=== PATIENT | female | born 1965 | race Two or more races ===

== ENCOUNTER 2021-12-03 09:58 | Outpatient (REF) | payer OTHER, SELFPAY ==
[2021-12-03 11:42] LABS: Erythrocyte Sedimentation Rate 16 MM/HR (0-20)
[2021-12-03 12:15] LABS: Syphilis Screen Nonreactive (Nonreactive)
[2021-12-03 12:18] LABS: Anion Gap 10 (12-20); Blood Urea Nitrogen 15 mg/dL (9-16); Calcium 9.5 mg/dL (8.4-10.2); Carbon Dioxide 29 mmol/L (22-29); Chloride 107 mmol/L (96-108); Estimated Glomerular Filt Rate > 60; Glucose Fasting 98 mg/dL (60-99); Potassium 4.9 mmol/L (3.3-5.1); Sodium 141 mmol/L (135-145)
[2021-12-05 05:06] LABS: Lyme Abs Screen <0.90 index
[2021-12-07 08:31] LABS: IgA 116 mg/dL (47-310); IgG 1246 mg/dL (600-1640); IgM 108 mg/dL (50-300)
== END 2021-12-03 09:59 | disposition home or self-care (01) ==
LOC: HO.LAB 09:58
PROVIDERS: Visit Provider Psychiatry & Neurology Neurology
DX: M79.7 Fibromyalgia (principal)
CPT/HCPCS: 36415; 80048; 82784; 85652; 86334; 86617; 86618; 86780

== ENCOUNTER 2022-05-26 10:54 | Outpatient (REF) | payer OTHER, SELFPAY ==
[2022-05-26 11:31] LABS: Blood Urea Nitrogen 14 mg/dL (9-16); Estimated Glomerular Filt Rate > 60
== END 2022-05-26 10:55 | disposition home or self-care (01) ==
LOC: HO.LAB 10:54
PROVIDERS: Visit Provider Psychiatry & Neurology Neurology
DX: I60.9 Nontraumatic subarachnoid hemorrhage, unspecified (principal)
CPT/HCPCS: 36415; 82565; 84520

== ENCOUNTER 2022-05-31 09:06 | Outpatient (REF) | payer OTHER, SELFPAY ==
--- NOTE | ~2022-05-31 | CT_ITS ---
EXAMINATION: CT ANGIOGRAM BRAIN, HEAD CLINICAL INFORMATION: 56-year-old with history of subarachnoid bleed. COMPARISON: None TECHNIQUE: Test bolus sequences followed by intravenous administration 100 mL of Omnipaque 350 intravenous contrast. Helical imaging was performed in the axial plane from the skull base to the vertex. Delayed postcontrast imaging of the head was also performed. The data was processed at the marketing technologist workstation for generation of MIP sequences. Three-dimensional volume rendered reformatted images were also generated at an offline 3-D workstation. The degree of stenosis determined by NASCET criteria. This CT examination was performed using dose optimization techniques as appropriate, variously including the following: *Automated exposure control *Adjustment of mA and/or kV according to patient size (this includes techniques or standardized protocols for targeted exams where dose is matched to indication/reason for exam; i.e. extremities or head) *Use of iterative reconstruction technique DLP: 2341 mGy-cm FINDINGS: Brain parenchymal images: The brain is normal in morphology and attenuation. There is no evidence for intracranial hemorrhage, extra-axial fluid collection, space-occupying process or mass effect. Normal brain parenchymal attenuation is noted with normal vázquez-white matter differentiation. No pathologic intracranial enhancement on delayed images. Ventricular system and subarachnoid spaces are within normal limits without hydrocephalus. Bony structures appear intact. The visualized airspaces are unopacified. Angiographic findings: The visualized extracranial internal carotid arteries are normal in caliber, smoothly contoured and patent. The intracranial internal carotid arteries are patent and normal in caliber with scattered mural calcifications involving both carotid siphons without significant focal stenosis. The A1 and A2 segments are patent and normal in caliber, with a normal appearance to the anterior communicating artery. The M1 segments are bilaterally symmetric and are patent with normal caliber, with a normal appearance to the MCA bifurcations bilaterally. The posterior communicating arteries are not visualized. The visualized extracranial vertebral arteries are patent and normal in caliber with the left being dominant. The intradural vertebral arteries are patent with the left being dominant with a small focus of calcification in the proximal left intradural vertebral artery wall. A low right anterior inferior cerebellar artery is visualized in addition to a left posterior inferior cerebellar artery which appear normal. The basilar artery is patent and normal in caliber with a normal appearance to the superior cerebellar and posterior cerebral arteries. No intracranial aneurysms or high flow vascular malformations are identified. There is normal opacification of the major dural venous sinuses within the limitations of the exam. CT/CT angio head IMPRESSION: 1. No major branch occlusion or significant focal intracranial arterial stenosis. No definite evidence for intracranial aneurysm or vascular malformation. 2. Unremarkable CT of the brain without and with contrast.
[2022-05-31] MEDS: iohexoL 350 MG/ML 100 ML INFUS..BTL IV (10:19)
== END 2022-05-31 09:07 | disposition home or self-care (01) ==
LOC: HO.CT 09:06
PROVIDERS: Visit Provider Psychiatry & Neurology Neurology
DX: I60.9 Nontraumatic subarachnoid hemorrhage, unspecified (principal)
CPT/HCPCS: 70496; Q9967

== ENCOUNTER 2025-04-10 14:44 | Outpatient (AMB) | payer OTHER, SELFPAY ==
--- NOTE | 2025-04-10 14:49 | MHC.OFFVIS ---
Intake Visit Reasons: 2 mnts Allergies No Known Allergies Allergy (Verified 04/04/25 08:28) Medication List - Last Reconciled 04/10/25 by Shayla Ritter MD cyclobenzaprine 10 mg PO TID PRN escitalopram oxalate 5 mg PO DAILY gabapentin 300 mg PO TID HPI Comments Details: 59 yo woman with migraine, anxiety, and probably psychosomatic disorder with symptoms of numbness in different areas of body. But, she also had an episode of unexplained SAH in 2021 with negative CTA brain, when she presented to [facility] ER with sudden onset of right sided neck area worst headache or her life. She was c/o right sided headache, every day, from shoulder to neck to the eye. It usually stayed for an hour or two. It is continuos 6/10 pain or more. Propranalol helped with HTN but not with headaches. She was not taking escitalopram. [facility] Medical History (Updated 04/10/25 @ 14:57 by Shayla Ritter MD) Carpal tunnel syndrome Somatization disorder RLS (restless legs syndrome) Anxiety Migraine without aura Review of Systems Const Details: Constitutional:?No fever, chills, fatigue, weight loss, or night sweats. HEENT:?No headache, vision changes, hearing loss, nasal congestion, sore throat. Neurological:?No dizziness, syncope, seizures, numbness, tingling, weakness, tremors, memory loss. Psychiatric:?No anxiety, depression, mood swings, sleep disturbance, or hallucinations. Endocrine:?No heat/cold intolerance, polydipsia, polyuria, or hair/skin changes. Hematologic/Lymphatic:?No easy bruising, bleeding, or lymphadenopathy. Integumentary (Skin):?No rash, lesions, itching, or color changes. ? Physical Exam Neuro Other: Mental Status: Alert and oriented to person, place, and time. Normal attention. Normal spontaneous speech, fluency, and comprehension. No obvious issues with mood and memory. Affect is appropriate. Cranial Nerves: CN II: Visual catherine full to confrontation, visual acuity intact. CN III, IV, : Pupils equal, round, reactive to light and accommodation. Extraocular movements are normal. CN V: Facial sensation is normal. CN VII: Facial movements symmetrical. CN VIII: Hearing intact to bedside conversation is normal. CN IX, X: Palate elevates symmetrically. CN XI: Shoulder shrug and head turn symmetrical. CN XII: Tongue midline without atrophy or fasciculations. Extrapyramidal: Full facial expressions and blinking. No rigidity. Movements are appropriate with no tremor or abnormality. Speech: Normal; no dysarthria or tremor. Assessment & Plan Assessment & Plan (1) Migraine with aura: Comment: Meds tried: gabapentin, cyclobenzaprine, propranolol, topiramate, amitriptyline Labs at [facility] in 2021: CBC ok, CMP ok, LFTs ok, CTA brain and neck at [facility] in Aug 2022: WNL CT brain at [facility] in Aug 2022: WNL CTA brain at [facility] in May 2022: OK CTA brain at [facility] in Apr 2022: OK CTA neck at [facility] in Apr 2022: OK MRI brain WWO at [facility] in Apr 2022: [place] CT brain WO at [facility] in March 2022: significant SAH CT brain WO at [facility] in February 2021: OK MRI brain WO at [facility] in February 2021: [place] NCV/EMG UEs at [facility] in Nov 2021: Mild to moderate right and mild left median neuropathy across the Carpal tunnel. MRI brain WO at [facility] in May 2020: WNL, there is imaging artifact from dental fillings MRI C spine at [facility] in Sep 2022: diff DJD, mild to mod spondylosis. Code(s): G43.109 - Migraine with aura, not intractable, without status migrainosus Category: Medical Qualifiers: Status migrainosus presence: without status migrainosus Intractability: intractable Qualified Code(s): G43.119 - Migraine with aura, intractable, without status migrainosus (2) Migraine equivalent syndrome: Code(s): G43.109 - Migraine with aura, not intractable, without status migrainosus Category: Medical (3) Stress: Code(s): F43.9 - Reaction to severe stress, unspecified Category: Medical (4) Migraine without aura: Code(s): G43.009 - Migraine without aura, not intractable, without status migrainosus Category: Medical Qualifiers: Status migrainosus presence: without status migrainosus Intractability: intractable Qualified Code(s): G43.019 - Migraine without aura, intractable, without status migrainosus Plan Impression: a: Migraine b: Anxiety/stress Rec: a: Propranalol 20mg a day in am b: Start depakote 250mg one at night Medications: New propranolol 20 mg PO ONCE 90 tabs 0RF divalproex 250 mg PO ONCE 90 tabs 0RF Coding Level of Care Code Est Pt Level 4 (61350) Diagnoses Intractable migraine with aura without status migrainosus G43.119 Status migrainosus presence: without status migrainosus Intractability: intractable Migraine equivalent syndrome G43.109 Stress F43.9 Intractable migraine without aura and without status migrainosus G43.019 Status migrainosus presence: without status migrainosus Intractability: intractable
--- OUTSIDE RECORDS SUMMARY | 2025-04-10 14:49 | XMS_ITS | Clinical Summary ---
Author Organization [facility] Address [address] [place] [address] Care Team Providers Care Surgical Services Manager Name Role Phone Garrick Johns GOVERNMENT CLERK Primary Care Provider [phone] Source Comments PLEASE NOTE, if this patient is a minor, it may be UNLAWFUL to discuss sensitive information that is contained in these records (such as FAMILY PLANNING, MENTAL HEALTH or SUBSTANCE ABUSE) with the minor patient's parent or other person without the patient's specific authorization.[facility] Allergies No known active allergies Medications hydrocortisone (ANUSOL-HC) 2.5 % rectal creamIndications :Anal pruritus Place rectally 2 (two) times daily. 30 g 1 4 Active docusate sodium (COLACE) 100 mg capsuleIndicatio ns:Generalized abdominal pain Take 1 Cap by mouth 2 (two) times daily. 60 Cap 1 5 Active surgical lubricant (K-Y LUBRICATING) gelIndications:P elvic pain in female Use lubricating jelly Prior to intercourse. 1 Tube 1 6 Active diphenhydrAMINE (BENADRYL) 25 mg tabletIndication s:Vaginal itching Take 1 Tab by mouth every 8 (eight) hours as needed for itching. 30 Tab 1 6 Active naproxen (NAPROSYN) 500 mg tabletIndication s:Chronic midline low back pain with sciatica, sciatica laterality unspecified Take 1 Tab by mouth 2 (two) times daily with a meal. 30 Tab 0 6 Active cyclobenzaprine (FLEXERIL) 10 mg tabletIndication s:muscle spasm Use at bed time for muscle spasm Indications: Muscle Spasm 30 Tab 1 6 Active salicylic acid 17 % gelIndications:V iral warts, unspecified type Apply topically once daily. 14 g 0 6 Active bacitracin 500 unit/gram ointmentIndicati ons:Superficial bacterial skin infection Apply topically 2 (two) times daily. 15 g 1 6 Active chlorhexidine (HIBICLENS) 4 % external liquidIndication s:Superficial bacterial skin infection Apply topically once daily as needed (chronic skin infectons). 946 mL 1 6 Active omeprazole (PRILOSEC) [address] capsule Take 1 Cap by mouth every morning before breakfast. Do not crush or chew. 30 Cap 2 6 Active ergocalciferol, vitamin D2, (VITAMIN D) 50,000 unit capsule Take 1 Cap by mouth once a week 4 Cap 2 7 Active Active Problems Problem Noted Date Diagnosed Date Chronic midline low back pain with sciatica 02/09 Acute folliculitis 02/23/2016 Breast pain in female 01/26/2016 Overview (02/21/2016): Multiple circumscribed round masses in both breast, birads- 2.02/15/16. Vaginal itching 10/01/2015 Tooth pain 10/01/2015 Pelvic pain in female 09/02/2015 Overview (10/04/2015): 09/28/15- 2.3 cm uterine lesion likely fibroid of uterus. F/u in 6 months for pelvic ultrasound. U/s abdomen- normal. Generalized abdominal pain 09/01/2015 Acute gastritis without hemorrhage 09/01/2015 Chronic paronychia of finger of left hand 2014 Chronic vaginitis 09/01/2015 Bruise 12/02/2014 Otitis externa, chronic 12/01/2014 Anemia 10/22/2014 Abdominal pain of multiple sites 10/21/2014 Low back pain radiating to both legs 08/20/2014 Chest wall pain, chronic 08/20/2014 Headache 08/20/2014 Constipation 08/20/2014 Contusion, chest wall 08/03/2014 Overview (08/03/2014): 07/10/14- [facility]. Shoulder pain, right 05/15/2014 Back pain 05/15/2014 Neutropenia, unspecified ([facility] V24) 4 Overview (06/01/2014): hiv- negetive Gastritis 03/31/2014 Depression 03/31/2014 Hip pain, left 03/31/2014 Overview (05/08/2014): Xray -04/16/14- left hip- normal left knee- minimal degenerative changes - left shoulder- negetive exam. Assessment & Plan (06/01/2014 6:24 AM EDT): pt is seen by dr ROBERTA,candice elliott for low back pain, Xray reveals degenerative disc at L5/s1 and grade 1 spondylolisthesis on dec. -seen by [facility] on 12/05/13 for low back and left knee pain -low back pain radiating to left side,s/p L5 epidural injections,worse with prolonged sitting and standing. Advised for trial of injection and surgery if failed. 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 Paresthesias in left hand 05/09/2011 Overview (05/28/2013): Neg EMG 05/24/11 @ [facility] Burning sensation of feet 05/09/2011 Overview (05/28/2013): Neg EMG LE's @ [facility] 07/25/11 B12 = 376 05/09/11 HgbA1C = 5.4 07/11/12 Vitamin D deficiency disease 02/18/2011 Overview (05/28/2013): = 15 Hepatitis C 08/13/2009 Overview (06/01/2014): DX '04 TX '05 Undetectable VL 11/17/09- present 12/23- neg viral load, Immune to hep a and B infection Neck pain Overview (12/28/2014): xrays 07/27/11 DDD C6-C7 Follow up [facility] Multilevel djd of spine and myofascial pain Referred to spine for epidural injection as well as pain clinic. Chronic abdominal pain Overview (05/28/2013): RUQ Neg CT scan 11/15/11([facility] & 11/04/08[facility]) Resolved Problems Problem Noted Date Diagnosed Date Resolved Date LBP (low back pain) radiating to left leg. 02/23/2016 Overview (05/28/2013): DDD L5S1, Spondylolisthesis L5 on S1 MRI 01/2009 Immunizations Immunization Administration Dates Next Due INFLUENZA, SEASONAL, INJECTABLE 05/28/2013,07/10 TDAP 05/28/2013 Social History Tobacco Use Types Packs/Day Years Used Date Smoking Tobacco: Never Smokeless Tobacco: Never Tobacco Cessation:Counseling Given: No Alcohol Use Standard Drinks/Week Comments No 0 (1 standard drink = 0.6 oz pur e alcohol) Social Connections Answer Date Recorded Social Connections and Isolation 0 05/04/2019 Financial Resource Strain Answer Date R ecorded Financial Resource Strain 0 2018 Stress Answer Date Recorded Stress 0 05/04/2019 Physical Activity Answer Date Recorded Physical Activity 0 05/04/2019 Food Insecurity Answer Date Recorded Food 0 05/04/2019 Transportation Needs Answer Date Record ed Transportation 0 05/04/2019 Housing Stability Answer Date Recorded Housing 0 05/04/2019 Safety and Environment Answer Date Garcia rded Safety 0 05/04/2019 Utilities Answer Date Recorded Utilities 0 05/04/2019 Employment Answer Date Recorded Employment 0 05/04/2019 Comments No Sex and Gender Information Value Date Recorded Sex Assigned at Not on file Legal Sex Female 11:36 AM PDT Gender Identity Not on file Sexual Orientation Not on file Last Filed Vital Signs Vital Sign Reading Time Taken Comments Blood Pressure 110/80 04/29/2016 10:33 AM EDT Pulse 68 04/29/2016 10:33 AM EDT Temperature 36.8 C (98.2 F) 04/29/2016 10:33 AM EDT Respiratory Rate 17 04/29/2016 10:33 AM EDT Oxygen Saturation 100% 01/26/2016 11:18 AM EDT Inhaled Oxygen Concentration - - Weight 75.3 kg (166 lb) 04/29/2016 10:33 AM EDT Height 160 cm (5' 3 ) 04/29/2016 10:33 AM EDT Body Mass Index 29.41 04/29/2016 10:33 AM EDT Plan of Treatment Not on file Insurance [facility] Member Subscriber Plan / Payer ( fective 2016-Present) Name:Lupis Barr Relation to Subscriber:Self Name:Lupis Barr Payer ID:[id number] Group ID:Not on file Type:Medicaid Address: [facility] [id number] [place] [id number] Care Teams Surgical Services Manager Relationship Specialty Start Date End Date Garrick Johns FNP [address] [place] [phone] PCP - General Family Medicine, GLOBAL MARKETING COORDINATOR 07/27/16
--- OUTSIDE RECORDS SUMMARY | 2025-04-10 14:49 | XMS_ITS | Clinical Summary ---
Author Organization [facility] Address [address] [place] [address] Care Team Providers Care Manager Marketing Sales Name Role Phone Alberto Seth MD Primary Care Provider [phone] Allergies No known active allergies Medications amitriptyline (ELAVIL) 25 mg tablet Take 50 mg by mouth nightly. 09/19/2023 Active gabapentin (NEURONTIN) 300 mg capsule SMARTSI Capsule(s) By Mouth 3 Times Daily Active ergocalciferol (VITAMIN D2) 1,250 mcg (50,000 unit) capsule Take by mouth. Active omeprazole (PriLOSEC) 20 mg capsule SMARTSI Capsule(s) By Mouth Every Morning 10/18/2023 Active prednisoLONE acetate (PRED FORTE) 1% ophthalmic suspension SMARTSI Drop(s) In Eye(s) 4 Times Daily 02/15/2024 Active Social History Tobacco Use Types Packs/Day Years Used Date Smoking Tobacco: Never Smokeless Tobacco: Never Tobacco Cessation:Counseling Given: Not Answered Comments Unknown Sex and Gender Information Value Date Recorded Sex Assigned at Not on file Legal Sex Female 12:54 PM EDT Gender Identity Not on file Sexual Orientation Not on file Last Filed Vital Signs Vital Sign Reading Time Taken Comments Blood Pressure 126/86 03/12/2024 2:20 PM EDT Pulse 77 03/12/2024 2:20 PM EDT Temperature - - Respiratory Rate - - Oxygen Saturation - - Inhaled Oxygen Concentration - - Weight - - Height - - Body Mass Index - - Plan of Treatment Health Maintenance Due Date Last Done Comments Cologuard 1967 Colon Cancer Screening 1967 Colonoscopy 1967 FOBT / Fit Test 1967 HIV Screening 1967 HPV and Pap Smear 1967 Hepatitis C Screening 1967 Sigmoidoscopy 1967 Hepatitis B Vaccines (1 of 3 - 19+ 3-dose series) 12/30/1986 Mammogram 2007 Pneumococcal Vaccine: 50+ Ye ars (1 of 1 - PCV) 12/30/2017 Zoster Vaccines (1 of 2) 12/30/2017 COVID-19 Vaccine (3 - 2023-2 5 season) 2024 04/27/2021, 04/03/2021 Alcohol/Substance Use Screening 09/11/2024 Depression Screening and Follow-Up 09/11/2024 Social Drivers of Health Nuria ual Screening 09/11/2024 Influenza Vaccine (#1) 2025 , 06/03/2021, 05/19/2020, Additional history exists Cervical Cancer Screening 04/21/2026 Pap Smear 04/21/2026 04/21/2023, 07/28/1999 DTaP,Tdap,and Td Vaccines (3 - Td or Tdap) 03/23/2027 03/23/2017, 05/28/2013 RSV Vaccine (60+ years old a nd patients) (1 - 1-dose 75+ series) 12/30/2042 Procedures * Due to [place] [employer] law, this organization might not be sharing negative HIV tests. Procedure Name Priority Date/Time Associated Diagnosis Comments PAP Routine 07/28/1999 12:22 PM EST from Last 3 Months or Most Recently Relevant to Health Maintenance Results * Due to [place] [employer] law, this organization might not be sharing negative HIV tests. * Pap (07/28/1999 12:22 PM EST) Path Procedure VCE ([id number]) 1 Edited by: [id number] [facility] ANATOMIC PATHOLOGY - [facility] Specimen Labeled As: 1 CERVICAL/ENDOCER VICAL CYTO MATERIAL - Edited by: [id number] [facility] ANATOMIC PATHOLOGY - [facility] Diagnosis GYNE PAP SMEAR ADEQUACY: Satisfactory GENERAL DIAGNOSTIC CATEGORY: Within NORMAL limits No pathogenic organisms seen Edited by: [id number] [facility] ANATOMIC PATHOLOGY - [facility] Gynecologic Clinical Data Specimen source:, VAGINAL/CERVICAL (1 SLIDE) [facility] ANATOMIC PATHOLOGY - [facility] Gynecologic Clinical Data First date of LMP:, [facility]AT[facility]OLOG[facility] - [facility] Gynecologic Clinical Data Gynecologic findings:, NONE GIVEN [facility] ANATOMIC PATHOLOGY - [facility] Marker 1 EC,MAIKEL MERARI [facility] ANATOMIC PATHOLOGY - [facility] Marker 2 LINSEY,RECEIVED IN CYTOLOGY [facility] ANATOMIC PATHOLOGY - [facility] Marker 3 WNL,Within Normal limits [facility] ANATOMIC PATHOLOGY - [facility] Cc Results To SELENE WESLEY [id number] [facility] ANATOMIC PATHOLOGY - [facility] Signature REPORT SIGNED: MAIKEL GAGE 08/23/99 [facility]ATOM[facility]OLOG[facility] - [facility] Sign Out Audit MAIKEL GAGE [id number] FINAL NEW [place] [id number] [facility] ANATOMIC PATHOLOGY - [facility] Cytology / Unknown 9 12:22 PM EST 08/02/1999 12:22 PM EST Radha Srinivasan MD LAB PATHOLOGY/CYTOLOGY ORDERABLE S Final Result [facility] ANATOM[facility] PATHOLOGY - [facility] [address] [place] [address], from Last 3 Months or Most Recently Relevant to Health Maintenance [place] [address] Care Teams Manager Marketing Sales Relationship Specialty Start Date End Date Alberto Seth MD [address] [place] [address] PCP - General 08/17/22
--- OUTSIDE RECORDS SUMMARY | 2025-04-10 14:49 | XMS_ITS | Encounter Summary ---
Author Organization [facility] Address [address] [place] [address] Care Team Providers Care Asset Protection Agent Name Role Phone Alberto Seth MD Primary Care Provider [phone] Encounter Details Date Type Department Care Team (Late st Contact Info) Description 12/17/[address] [facility] - Main Lab [address] [facility] [place] [phone] Bennett Mario MD [address] [facility] [address] [place] [address] Epigastric pain; Heartburn; Gastro-esophageal reflux disease with esophagitis, without bleeding Social History Tobacco Use Types Packs/Day Years Used Date Smoking Tobacco: Never Smokeless Tobacco: Never Alcohol Use Standard Drinks/Week Comments No 0 (1 standard drink = 0.6 oz pur e alcohol) Comments No Sex and Gender Information Value Date Recorded Sex Assigned at Female 10/25/2024 3:45 PM EST Legal Sex Female 3:53 AM EST Gender Identity Female 10/25/2024 3:45 PM EST Sexual Orientation Straight 10/25/2024 3: 45 PM EST documented as of this encounter Functional Status * Are you deaf or do you have serious difficulty hearing? Answer Date of Assessment Author No 10/25/2024 8:48 PM EST Leonardo Jesus RN * Are you blind or do you have serious difficulty seeing, even when wearing glasses? Answer Date of Assessment Author No 10/25/2024 8:48 PM Leonardo Lee RN * Do you have serious difficulty walking or climbing stairs? Answer Date of Assessment Author No 10/25/2024 8:48 PM Leonardo Lee RN * Do you have serious difficulty dressing or bathing? Answer Date of Assessment Author No 10/25/2024 8:48 PM Leonardo Lee RN * Because of a physical, mental, or emotional condition, do you have serious difficulty doing errandsalone such as visiting the doctor? Answer Date of Assessment Author No 10/25/2024 8:48 PM Leonardo Lee RN documented as of this encounter Mental Status * Because of a physical, mental, or emotional condition, do you have serious difficulty concentrating, remembering, or making decisions? (5 years old or older) Answer Entry Date Author No 10/25/2024 8:48 PM Leonardo Lee RN documented in this encounter Plan of Treatment Upcoming Encounters Date Type Department Care Team (Late st Contact Info) Description 06/26/2025 1:40 PM EDT Office Visit Gastroenterology - [place] [address] [place] [phone] Kathy Richardson PA [address] [place] [address] documented as of this encounter Procedures Procedure Name Priority Date/Time Associated Diagnosis Comments TISSUE EXAM Routine 12/17/2024 Epigastric pain Heartburn Gastro-esophageal reflux disease with esophagitis, without bleeding documented in this encounter Results * Tissue Exam (12/17/2024) Final Diagnosis A. Gastric, Antrum, biopsy: - Gastric antral mucosa with no specific pathologic changes. - No Helicobacter pylori organisms are morphologically identified. B. Esophagus, distal biopsy: - Esophageal squamous mucosa with no specific pathologic changes. - Negative for intestinal metaplasia and intraepithelial eosinophils. C. Esophagus, mid biopsy: - Esophageal squamous mucosa with no specific pathologic changes. - Negative for intraepithelial eosinophils. 12/18/2024 12:33 PM EDT [facility] Clinical Information Epigastric abdominal pain, Heartburn, Gastro-esophageal reflux disease R/O Helicobacter pylori R/O Eosinophilic Esophagitis 12/18/2024 12:33 PM EDT [facility] Gross Description A. Gastric, Antrum, biopsy: Labeled gastric antrum R/O Helicobacter pylori . Received in formalin are two soft, tucker-pink, thin tissue fragments measuring approximately 0.25 cm in greatest diameter, which are wrapped in paper and submitted in toto cassette, two pieces, multiple levels. B. Esophagus, distal biopsy: Labeled distal esophagus R/O eosinophilic esophagitis . Received in formalin are two soft, white, red-stapled tissue fragments measuring approximately 0.25 cm greatest diameter, which are wrapped in paper and submitted in toto in one cassette, two pieces, multiple levels. C. Esophagus, mid biopsy: Labeled mid esophagus R/O eosinophilic esophagitis . Received in formalin are two soft, tucker-white to pink tissue fragment measuring 0.15 cm and 0.25 cm in greatest diameter, which are wrapped in paper and submitted in toto in one cassette, two pieces, multiple levels. TS 12/18/2024 12:33 PM EDT [facility] Disclaimer Unless otherwise specified, all tissue is 10% NB formalin fixed and paraffin embedded. 12/18/2024 12:33 PM EDT [facility] Tissue Esophageal structure / Unknown 12/17/2024 12/17/2024 2:24 PM EDT Tissue specimen (specimen) Esophageal structure / Unknown 12/17/2024 12/17/2024 2:24 PM EDT Tissue specimen (specimen) Esophageal structure / Unknown 12/17/2024 12/17/2024 2:24 PM EDT us Bennett Mario MD LAB PATHOLOGY ORDERABLES Fi nal Result [facility] [address] [place] [address], documented in this encounter Visit Diagnoses Diagnosis Epigastric pain Abdominal pain, epigastric Heartburn Gastro-esophageal reflux disease with esophagitis, without bleeding documented in this encounter Additional Health Concerns Infection Onset Date Last Indicated Resolved Time Gastrointestinal Rule-Out 02/08/2025 02/09/2025 11:46 AM EDT Respiratory Rule-Out 02/08/2025 02/08/2025 025 10:18 AM EDT COVID-19 Rule-Out 02/08/2025 02/08/2025 02/08/2025 10:18 AM EDT Respiratory Rule-Out 02/26/2025 02/26/2025 025 7:30 PM EDT COVID-19 Rule-Out 02/26/2025 02/26/2025 02/26/2025 7:30 PM EDT C. difficile Rule-Out 03/25/2025 03/25/20252024 6:18 PM EDT documented as of this encounter Care Teams Asset Protection Agent Relationship Specialty Start Date End Date Alberto Seth MD [address] [place] [id number] PCP - General Internal Medicine 10/18/21 documented as of this encounter
--- OUTSIDE RECORDS SUMMARY | 2025-04-10 14:49 | XMS_ITS | Clinical Summary ---
Author Organization [facility] Address [address] [place] [address] Care Team Providers Care Glass Cut Off Tender Name Role Phone Alberto Seth MD Primary Care Provider [phone] Allergies No known active allergies Medications Medication Sig Dispensed Refills Start Date End Date Status gabapentin (NEURONTIN) 300 MG capsule Take 1 capsule (300 mg total) by mouth 3 (three) times a day. 0 Active conjugated estrogens (PREMARIN) vaginal cream Place vaginally daily. 0 Active fluticasone (FLONASE) 50 MCG/ACT nasal spray spray/apply 1 spray in each nostril daily. 0 Active amitriptyline (ELAVIL) tablet 50 mg Take 1 tablet (50 mg total) by mouth every night at bedtime. 0 Active Vitamin D, Ergocalciferol, 61039 units CAPS Take by mouth. 0 Active Active Problems No known active problems Family History Medical History Relation Name Comments Cancer Mother Relation Name Status Comments Mother Social History Tobacco Use Types Packs/Day Years Used Date Smoking Tobacco: Never Smokeless Tobacco: Never Tobacco Cessation:Counseling Given: Not Answered Alcohol Use Standard Drinks/Week Comments No 0 (1 standard drink = 0.6 oz pur e alcohol) Sex and Gender Information Value Date Recorded Sex Assigned at Not on file Gender Identity Not on file Sexual Orientation Not on file Job Start Date Occupation Industry Not on file Not on file Not on file Last Filed Vital Signs Vital Sign Reading Time Taken Comments Blood Pressure 123/72 08/30/2022 1:31 PM EST Pulse 83 08/30/2022 1:31 PM EST Temperature 36.7 C (98.1 F) 08/30/2022 1:31 PM EST Respiratory Rate - - Oxygen Saturation 100% 08/30/2022 1:31 PM EST Inhaled Oxygen Concentration - - Weight 76.7 kg (169 lb) 08/30/2022 1:31 PM EST Height 160 cm (5' 3 ) 09/24/2020 3:09 PM EST Body Mass Index 29.94 09/24/2020 3:09 PM EST Plan of Treatment Health Maintenance Due Date Last Done Comments Hepatitis B Vaccines (1 of 3 - 3-dose series) 1967 Hepatitis C Screening 1967 Depression Screening 1979 Preventative Health Evaluation 12/30/1985 Cervical Cancer Screening (Pap Smear) 12/30/1988 Colon Cancer Screening (Colonoscopy) 12/30/2012 Breast Cancer Screening (Mammogram) 12/30/2017 Shingrix-Zoster Vaccine (1 of 2) 12/30/2017 COVID-19 Vaccine ( season) 2024 04/27/2021, 04/03/2021 Influenza Vaccine (#1) 2025 , 05/19/2020, 11/14/2019, Additional history exists DTap / Tdap / Td (3 - Td or Tdap) 03/23/2027 03/23/2017, 05/28/2013 Pneumococcal Vaccine Aged Out No long er eligible based on patient's age to complete this topic RSV Ped < 20 months Aged Out No longe r eligible based on patient's age to complete this topic Care Teams Glass Cut Off Tender Relationship Specialty Start Date End Date Alberto Seth MD [address] [place] [address] [place] [address] PCP - General Internal Medicine 08/30/22
== END 2025-04-10 15:02 | disposition home or self-care (01) ==
LOC: HO.HSM 14:45
PROVIDERS: PCP Internal Medicine; Referring Provider Internal Medicine; Visit Provider Psychiatry & Neurology Neurology
DX: G43.119 Migraine with aura, intractable, without status migrainosus (principal); G43.109 Migraine with aura, not intractable, without status migrainosus; F43.9 Reaction to severe stress, unspecified; G43.019 Migraine without aura, intractable, without status migrainosus
CPT/HCPCS: 99214

== ENCOUNTER → 2025-04-10 14:44 | Outpatient (BNVA) | payer OTHER, SELFPAY | PROVIDERS: PCP Internal Medicine; Referring Provider Internal Medicine; Visit Provider Psychiatry & Neurology Neurology | DX: G43.109 Migraine with aura, not intractable, without status migrainosus (principal); G43.119 Migraine with aura, intractable, without status migrainosus; G43.009 Migraine without aura, not intractable, without status migrainosus; F43.9 Reaction to severe stress, unspecified | CPT/HCPCS: 99212 ==

== ENCOUNTER 2025-06-12 15:25 | Outpatient (REF) | payer OTHER, SELFPAY | END 2025-06-12 15:26 | disposition home or self-care (01) | LOC: HO.LAB 15:25 | PROVIDERS: PCP Internal Medicine; Visit Provider Psychiatry & Neurology Neurology | DX: G43.119 Migraine with aura, intractable, without status migrainosus (principal); F43.9 Reaction to severe stress, unspecified | CPT/HCPCS: 36415; 85652; 99212 ==

== ENCOUNTER 2025-06-12 15:25 | Outpatient (AMB) | payer OTHER, SELFPAY ==
--- NOTE | 2025-06-12 15:25 | A.OFFVIS_ITS ---
Intake Visit Reasons: 2m [place]ANS Allergies No Known Allergies Allergy (Verified 04/04/25 08:28) HPI Comments Details: 59 yo woman with migraine, anxiety, and probably psychosomatic disorder with symptoms of numbness in different areas of body. But, she also had an episode of unexplained SAH in 2021 with negative CTA brain, when she presented to [facility] with sudden onset of right sided neck area worst headache or her life. She reported almost daily headache with no change in sitting or supine position but sometime sleeping on 1 side or the other could make some difference. Pain was there all day almost every day. Medicines were not working. [facility] Medical History (Updated 06/12/25 @ 15:34 by Shayla Ritter MD) Carpal tunnel syndrome Somatization disorder RLS (restless legs syndrome) Anxiety Migraine without aura Physical Exam Neuro Other: Mental Status: Alert and oriented to person, place, and time. Normal attention. Normal spontaneous speech, fluency, and comprehension. No obvious issues with mood and memory. Affect is appropriate. Cranial Nerves: CN II: Visual catherine full to confrontation, visual acuity intact. CN III, IV, : Pupils equal, round, reactive to light and accommodation. Extraocular movements are normal. CN V: Facial sensation is normal. CN VII: Facial movements symmetrical. CN VIII: Hearing intact to bedside conversation is normal. CN IX, X: Palate elevates symmetrically. CN XI: Shoulder shrug and head turn symmetrical. CN XII: Tongue midline without atrophy or fasciculations. Coordination: Keqibi-sy-bish and lyks-tz-ztmp testing normal. No dysmetria. Gait and Station: No obvious gait abnormality. No ataxia or instability. Extrapyramidal: Full facial expressions and blinking. No rigidity. Movements are appropriate with no tremor or abnormality. Speech: Normal; no dysarthria or tremor. Results Reviewed Results Reviewed: CRP level in March was 0.29. Vitamin-D level was 24. B12 was 605. Assessment & Plan Assessment & Plan (1) Migraine without aura: Code(s): G43.009 - Migraine without aura, not intractable, without status migrainosus Category: Medical Qualifiers: Intractability: intractable Status migrainosus presence: without status migrainosus Qualified Code(s): G43.019 - Migraine without aura, intractable, without status migrainosus (2) Migraine with aura: Comment: Meds tried: gabapentin, cyclobenzaprine, propranolol, topiramate, amitriptyline, Depakote CT brain WO at [facility] in March 2025: OK MRI C spine WO at [facility] in March 2025: Mild to mod spondylosis but no sig stenosis MRI brain WO at [facility] in 2023: WNL Labs at [facility] in 2021: CBC ok, CMP ok, LFTs ok, CTA brain and neck at [facility] in Aug 2022: WNL CT brain at [facility] in Aug 2022: [place] brain [place] [facility] [place]: [place] CTA brain at [facility] in Apr 2022: OK CTA neck at [facility] in Apr 2022: OK MRI brain WWO at [facility] in Apr 2022: OK CT brain WO at [facility] in March 2022: significant SAH CT brain WO at [facility] in February 2021: OK MRI brain WO at [facility] in February 2021: OK NCV/EMG UEs at off in Nov 2021: Mild to moderate right and mild left median neuropathy across the Carpal tunnel. MRI brain WO at [place] in May 2020: WNL, there is imaging artifact from dental fillings MRI C spine at [facility] in Sep 2022: diff DJD, mild to mod spondylosis. Code(s): G43.109 - Migraine with aura, not intractable, without status migrainosus Category: Medical Qualifiers: Intractability: intractable Status migrainosus presence: without status migrainosus Qualified Code(s): G43.119 - Migraine with aura, intractable, without status migrainosus (3) Migraine equivalent syndrome: Code(s): G43.109 - Migraine with aura, not intractable, without status migrainosus Category: Medical (4) Stress: Code(s): F43.9 - Reaction to severe stress, unspecified Category: Medical Plan Impression: Chronic intractable migraine type of headaches with no significant lesion noted on brain imaging and cervical spine imaging at [facility] in March of 2025. She has failed multiple preventive medicines. Recommendations: 1. Try verapamil 120 mg sustained release 1 at bedtime 2. Sed rate 3. If verapamil would not work, and sed rate would be normal, injectable medicine such as CGRP inhibitors or Botox would be tried. Orders: Orders Erythrocyte Sedimentation Rate Today G43.019 - Migraine without aura, intractable, without status migrainosus Medications: New verapamil ER 120 mg PO DAILY 30 caps 1RF Coding Level of Care Code Est Pt Level 4 (94621) Diagnoses Intractable migraine without aura and without status migrainosus G43.019 Intractability: intractable Status migrainosus presence: without status migrainosus Intractable migraine with aura without status migrainosus G43.119 Intractability: intractable Status migrainosus presence: without status migrainosus Migraine equivalent syndrome G43.109 Stress F43.9
--- OUTSIDE RECORDS SUMMARY | 2025-06-12 16:41 | XMS_ITS | Clinical Summary ---
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 Paresthesias in left hand 05/09/2011 Overview (05/28/2013): Neg EMG 05/24/11 @ [facility] Burning sensation of feet 05/09/2011 Overview (05/28/2013): Neg EMG LE's @ [facility] 07/25/11 B12 = 376 05/09/11 HgbA1C = [...] pain Overview (05/28/2013): RUQ Neg CT [place]/04/08[place]) Resolved Problems Problem Noted Date Diagnosed Date [...] Plan of Treatment Not on file Insurance [facility] Member Subscriber Plan / Payer ( fective 2016-Present) Name:Lupis Barr Relation to Subscriber:Self Name:Lupis Barr Payer ID:[id number] Group ID:Not on file Type:Medicaid Address: [facility] [id number] [place] [address] Care Teams Nurse Educator Relationship Specialty Start Date End Date Garrick Johns FNP [address] [place] [phone] PCP - General Family Medicine, STREET SWEEPER 07/27/16
--- OUTSIDE RECORDS SUMMARY | 2025-06-12 16:41 | XMS_ITS | Encounter Summary ---
Author Organization [facility] Address [address] [place] [address] Care Team Providers Care Manager Transfusion Name Role Phone Alberto Seth MD Primary Care Provider [phone] Encounter Details Date Type Department Care Team (Late st Contact Info) Description 12/17/2024 Lab Requisition [facility] - Main Lab [address] [facility] [employer] [place] [id number] Bennett Mario MD [address] [facility] [address] [place] [address] Epigastric pain; Heartburn; Gastro-esophageal reflux disease with [...] 1:40 PM EDT Office Visit Gastroenterology - [place] [address] [place] [phone] Kathy Richardson PA [address] [place] [address] documented as of this encounter Procedures Procedure [...] for intraepithelial eosinophils. 12/18/2024 12:33 PM EDT [facility] Clinical Information Epigastric abdominal pain, [...] nal Result [facility] [address] [place] [address], documented in this encounter Visit Diagnoses Diagnosis [...] documented as of this encounter Care Teams Manager Transfusion Relationship Specialty Start Date End Date Alberto Seth MD [address] [place] [id number] PCP - General Internal Medicine 10/18/21 documented as of this encounter
--- OUTSIDE RECORDS SUMMARY | 2025-06-12 16:42 | XMS_ITS | Data Portability ---
Author Organization [place] - [facility], Allergy Address [address] [place] [address] Care Team Providers Care Electronic Resources Librarian Name Role Phone SHAHIDA CAN Primary Care Provider Assessment Encounter Date Assessment Date Assessment LastModified by Organization Details LastModified Time 05/10/2024 05/10/2024 Patient has multiple concerns including 1. right sided otorrhea - on exam it was dry with no otorrhea present and no effusion 2. 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 She may benefit from working with her dentist 3. she asked about CSF leak - I do not believe that is the case as she is not having any rhinorrhea or otorrhea that can be collected 4. reflux - she spit into a cup and I believe that the sour bitter tasting material is reflux. she will discuss this with her PCP hx of CVA in 2021 which may explain some of her abnormal neurological symptoms [email or web address] Not available 05/10/2024 14:42:29 12/06/2024 12/06/2024 Patient returns for evaluation of chronic mucus, nasal drip. She describes the amount of secretions can decrease after antibiotic use but then quickly returns after antibiotics are completed. Today she felt she had copious yellow mucus in the morning. My examination with anterior rhinoscopy was benign. Her otologic examination was also normal with dry external auditory canals on both sides. A nasal endoscopy was performed with care to limit passage of the scope so it did not violate her fast by entering her nasopharynx. Nonetheless a thorough examination was able to be performed with no evidence of nasal polyposis or sinusitis or abnormal rhinorrhea. For treatment I recommend she thin her secretions with nasal saline several times daily. This is available [id number]-dlggty r. I explained the natural phenomenon of mucus production and the nose is normal and should not be stopped. She went on to describe multiple variations of headache and facial pressure which I believe are directly related to her history of migraine and previous stroke that she currently is followed closely by her neurologist. At this time I do not believe additional imaging is necessary or indicated as she has had MRI as recently as October of last year with no sinus pathology [email or web address] Not available 12/06/2024 12:09:47 Plan of Treatment Reminders Order Date Submit Date Provider Last Modified By Organization Details Last Modified Time Details Appointments None record ed. Lab None record ed. Referral None record ed. Procedures None record ed. Surgeries None record ed. Imaging None record ed. Medication Orders None record ed. Patient TargetsNo targets recorded. Patient InstructionsNo instructions recorded. Reason for Referral None Reported. Results Created Date Observation Date Name Description Value Unit Range Abnormal Flag Note LastModifiedBy Organization Detail LastModifiedTime 05/01/20 24 09/14/2022 imagi ng/di agnos tic resul t No observ ation record ed. [email or web address] Not Available 19:10:05 05/01/20 24 11/08/2023 imagi ng/di agnos tic resul t No observ ation record ed. [email or web address] Not Available 19:10:11 05/01/20 24 05/26/2020 imagi ng/di agnos tic resul t No observ ation record ed. [email or web address] Not Available 19:10:23 05/01/20 24 06/17/2020 imagi ng/di agnos tic resul t No observ ation record ed. [email or web address] Not Available 19:10:34 Result Notes None recorded. Problems Name Problem SNOMED Code Status Onset Date Resolution Date Notes Provider Name and Address Organization Details Recorded Time Itching of skin 072476315 Active 2019 Other pruritus; Note: Date Diagnosed : 06/17/2020 3:34 PM (L29.8) Not Available [facility] 4 03:08:17 Chronic pharyngit is 766820 Active 2019 Chronic sore throat; Note: Date Diagnosed : 06/17/2020 3:34 PM (J31.2) Not Available [facility] 4 03:08:16 Bilateral temporoma ndibular joint pain [id number] 361185 Active 2019 Arthralgi a of bilateral temporoma ndibular joint; Note: Date Diagnosed : 06/17/2020 3:34 PM (M26.623) Not Available [facility] 4 03:08:17 Bilateral tinnitus 05234521298 02 Active 2019 Tinnitus, bilateral ; Note: Date Diagnosed : 06/17/2020 3:34 PM (H93.13) Not Available [facility] 4 03:08:17 Paresthes ia 95075465 Active 2019 Paresthes ia of skin; Note: Date Diagnosed : 06/17/2020 3:34 PM (R20.2) Not Available [facility] 4 03:08:17 Nasal congestio n 25745221 Active 2019 Nasal congestio n; Note: Date Diagnosed : 06/17/2020 3:34 PM (R09.81) Not Available [facility] 4 03:08:16 Gastroeso phageal reflux disease without esophagit is 666323607 Active 2023 Gastro-es ophageal reflux disease without esophagit is; Note: Date Diagnosed : 10/18/2023 12:22 PM (K21.9) Not Available [facility] 4 03:08:15 Tinnitus of right ear 31193027042 08 Active 2023 Tinnitus, right ear; Note: Date Diagnosed : 10/18/2023 12:21 PM (H93.11) Not Available [facility] 4 03:08:16 Posterior rhinorrhe a 35993120 Active 2023 Postnasal drip; Note: Date Diagnosed : 10/18/2023 12:22 PM (R09.82) Not Available [facility] 4 03:08:16 Otalgia of right ear 2201049447 Active 2023 Otalgia, right ear; Note: Date Diagnosed : 11/29/2023 2:29 PM (H92.01) Not Available [facility] 4 03:08:16 Chronic headache disorder 524826641 Active 2024 SASHA MEIER MD [address] [address], [place], [address] , [facility] 5 12:06:15 Problem Notes None recorded. Procedures Surgical History Date Name Laterality Status Provider Name and Address Organization Details Recorded Time 12/06/2024 NasalEndos copy_DP completed SASHA MEIER MD [address] [facility] [address], [place], [address], [facility] 12/06/2024 12:03:27 Imaging Results None recorded. Procedure Notes None recorded. Medical Equipment None Reported. Allergies No known drug allergies Medications Name Sig Start Date Stop Date Status Note LastModified by Organization Details LastModified Time quetiapin e 25 mg tablet TAKE 1 TABLET BY MOUTH EVERY DAY AT BEDTIME FOR 30 DAYS 12/06 completed Not Available Not Available Not Available cyclobenz aprine 10 mg tablet TAKE 1 TABLET BY MOUTH 3 TIMES A DAY IF NEEDED FOR MUSCLE SPASMS FOR UP TO 10 DAYS. active Not Available Not Available No t Available doxycycli ne hyclate 100 mg capsule TAKE 1 CAPSULE ORALLY 2 TIMES A DAY FOR 10DAYS WITH AT LEAST 8OZ OF WATER DON'T LIE DOWN FOR 30 MIN 12/06 completed Not Available Not Available Not Available cetirizin e 10 mg tablet TAKE 1 TABLET BY MOUTH AT BEDTIME 12/06 completed Not Available Not Available Not Available prochlorp erazine maleate 5 mg tablet TAKE 2 TABLETS BY MOUTH EVERY 8 HOURS NEEDED FOR PAIN active Not Available Not Available No t Available sumatript an 25 mg tablet TAKE 1 TABLET (25 MG TOTAL) BY MOUTH 1 (ONE) TIME IF NEEDED FOR MIGRAINE . MAY REPEAT AFTER 2 HOURS. active Not Available Not Available No t Available cyanocoba jacob (vit B-12) 1,000 mcg tablet TAKE 1 TABLET (1,000 MCG TOTAL) BY MOUTH ONCE DAILY active Not Available Not Available No t Available topiramat e 25 mg tablet TAKE 1 TABLET BY MOUTH EVERY DAY FOR 30 DAYS 12/06 completed Not Available Not Available Not Available ciproflox acin 500 mg tablet TAKE 1 TABLET BY MOUTH TWICE A DAY FOR 7 DAYS 12/06 completed Not Available Not Available Not Available propranol ol 40 mg tablet TAKE 1 TABLET BY MOUTH TWICE A DAY 12/06 completed Not Available Not Available Not Available [place] Saline nasal gel Apply 1 a small amount into both nostrils at bedtime 2019 active Medicati on ID: [id number] D uration Value: 30 Prescri bed By Name: NELLA Camacho nd Name: [place] Jim S end Method: E-Prescr ibed Sub s Allowed: subs OK Medic ationGen ericName : Jyoti Saline Not Available Not Available Not Available amitripty line 25 mg tablet TAKE 1 TABLET BY MOUTH EVERYDAY AT BEDTIME active Not Available Not Available No t Available prednisol one acetate 1 % eye drops,nii pension INSTILL 1 DROP INTO BOTH EYES 4 TIMES A DAY 12/06 completed Not Available Not Available Not Available benzonata te 100 mg capsule TAKE 1 CAPSULE BY MOUTH 3 TIMES DAILY NEEDED FOR COUGH FOR UP TO 10 DAYS. active Not Available Not Available No t Available gabapenti n 300 mg capsule TAKE 1 CAPSULE BY MOUTH THREE TIMES A DAY active Not Available Not Available No t Available omeprazol e 20 mg capsule,d elayed release TAKE 1 CAPSULE EVERY MORNING ONE HOUR BEFORE MEALS 12/06 completed Not Available Not Available Not Available ibuprofen 600 mg tablet TAKE 1 TABLET BY MOUTH EVERY 6 HOURS IF NEEDED FOR MILD PAIN FOR UP TO 10 DAYS. active Not Available Not Available No t Available propranol ol 20 mg tablet TAKE 1 TABLET BY MOUTH TWICE A DAY FOR 30 DAYS active Not Available Not Available No t Available ondansetr on 4 mg disintegr ating tablet 12/06 completed Not Available Not Available Not Available fluticaso ne propionat e 50 mcg/actua tion nasal spray,nii pension SPRAY 2 SPRAYS INTO EACH NOSTRIL EVERY DAY active Not Available Not Available No t Available amoxicill in 875 mg-potass ium clavulana te 125 mg tablet TAKE 1 TABLET BY MOUTH EVERY 12 HOURS FOR 7 DAYS 12/06 completed Not Available Not Available Not Available amoxicill in 500 mg-potass ium clavulana te 125 mg tablet TAKE 1 TABLET BY MOUTH TWICE A DAY FOR 7 DAYS 12/06 completed Not Available Not Available Not Available neomycin- polymyxin -hydrocor t 3.5 mg-10,000 unit/mL-1 % ear drops,nii p INSTILL 4 DROPS INTO RIGHT EAR 4 TIMES A DAY active Not Available Not Available No t Available cyclobenz aprine 5 mg tablet TAKE 1 TABLET BY MOUTH 3 TIMES DAILY NEEDED FOR MUSCLE SPASMS FOR UP TO 10 DAYS. 12/06 completed Not Available Not Available Not Available [place] Nasal 0.65 % spray aerosol [place] 2 spray into both nostrils three times a day 2019 active Medicati on ID: [id number] D uration Value: 30 Prescri bed By Name: NELLA Camacho nd Name: [place] Nasal Se nd Method: E-Prescr ibed Sub s Allowed: subs OK Medic ationGen ericName : [place] Nasal Not Available Not Available Not Available nitrofura ntoin monohydra te/macroc rystals 100 mg capsule TAKE 1 CAPSULE BY MOUTH TWICE A DAY FOR 7 DAYS 12/06 completed Not Available Not Available Not Available tizanidin e 2 mg capsule TAKE 1 CAPSULE BY MOUTH EVERY 8 HOURS NEEDED FOR MUSCLE CRAMPS 12/06 completed Not Available Not Available Not Available Vitals Date Recorded Body height Body mass index (BMI) Body weight Provider Name and Address Organization Details Last Updated DateTime 12/06/2024 160.02 cm 29.2 kg/m2 31599.74 g SARAHI BURRIS [facility] 12/06/2024 11:32:45 Date Recorded Body height Body mass index (BMI) Body weight Provider Name and Address Organization Details Last Updated DateTime 05/10/2024 160.02 cm 30.8 kg/m2 70164.07 g Kristan Herron [facility] 05/10/2024 14:20:35 Social History None recorded. Functional Status None recorded. Mental Status None recorded. Family History Nothing Reported. Medical History No medical history recorded. Gynecological HistoryNo gynecological history recorded. Obstetrics History GPAL:G 0 P 0 0 0 0 Past Encounters Encounter ID Performer Location Encounter Start Date Encounter Closed Date Diagnosis/Indication Diagnosis SNOMED-CT Code Diagnosis ICD10 Code Diagnosis IMO Codes Diagnosis Note [id number] SASHA MEIER MD [facility] [address] [place] [address] 05/10/2024 13:50:01 05/10/2024 14:43:35 Bilateral temporomandibular joint pain 0066453079 8692091 M26.623 Bilateral tinnitus 67172 63891 102 H93.13 Gastroesop hageal reflux disease without esophagitis 478352899 K21.9 [id number] SASHA MEIER MD [facility] [address] [place] [address] 12/06/2024 11:20:16 12/06/2024 12:08:33 Posterior rhinorrhea 30160362 R09.82 Chronic he adache disorder 645568583 G44.89 Health Concerns Section Related Observation LastModified by Organization Detai ls LastModified Time None Recorded Concern Status LastModified by Organization Details LastModified Time None Recorded Advance Directives Directive None Recorded Payers Insurance Date Sequence Insurance Name Policy Number Policy Avelar Covered Member ID Avelar Member ID Guarantor Name 10/17/2024 1 [facility] [employer] [facility] [id number] L[employer] [id number] [employer] 12/06/2024 1 [facility] (HMO) [id number] Lupis [employer] Momo [id number] [employer] Notes Date Note Type Note Provider Name and Address Organization Details Recorded Time 05/10/2024 text/html ROS as noted in the HPI right otor[place] [facility] [place] unilateral tinnitus and dizzy with normal audio, normal MRI and ENT eval in pastotalgia from TMJ reflux - sour taste in mouth, burning in throat, FOL showed cobblestone on posterior pharynx has tried nasal saline and flonase nose spray with no reliefPND 05/09/24 [facility] - unremarkable vascular exam with cervical spine changes SASHA MEIER MD [address] [address], [place], [address], [facility] - [facility] 05/10/2024 14:42:41 12/06/2024 text/html ROS as noted in the HPI feels watery drip on right side nose and right earexperiences it daily since prior to 2021no recent imagingworks with neurology for headaches, amitriptyline, gabapentin, propanolol, sumatriptan PV 05/10/24 [facility] -TMJ, rhinorrhea, reflux hx of CVA in 2021 which may explain some of her abnormal neurological symptoms SASHA MEIER MD [address] [place] [address], [place], [address], [place] - [facility] 12/06/2024 12:10:01 OBGyn Episode No OBEpisode recorded.
--- OUTSIDE RECORDS SUMMARY | 2025-06-12 16:42 | XMS_ITS | Clinical Summary ---
Author Organization [facility] Address [address] [place] [address] Care Team Providers Care Tower Crane Operator Name Role Phone Alberto Seth MD Primary Care Provider [phone] Allergies No known active allergies Medications amitriptyline [...] 12/30/2017 Zoster Vaccines (1 of 2) 12/30/2017 Alcohol/Substance Use Screening 09/11/2024 Depression Screening and Follow-Up 09/11/2024 Social Drivers of Health Nuria ual Screening 09/11/2024 COVID-19 Vaccine (3 - 2024-2 6 season) 2025 04/27/2021, 04/03/2021 Influenza Vaccine (#1) 2025 , 06/03/2021, 05/19/2020, Additional history exists Cervical Cancer Screening 04/21/2026 Pap Smear 04/21/2026 04/21/2023, 07/28/1999 DTaP,Tdap,and Td Vaccines (3 - Td or Tdap) 03/23/2027 03/23/2017, 05/28/2013 RSV Vaccine (60+ years old a nd patients) (1 - 1-dose 75+ series) 12/30/2042 Procedures * Due to [place] law, this organization might not be sharing negative HIV tests. Procedure Name Priority Date/Time Associated Diagnosis Comments PAP Routine 07/28/1999 12:22 PM EST from Last 3 Months or Most Recently Relevant to Health Maintenance Results * Due to [place] law, this organization might not be sharing negative HIV tests. * Pap (07/28/1999 12:22 PM EST) Path Procedure VCE ([id number]) 1 Edited by: [id number] [facility] ANATOMIC PATHOLOGY - BIOTECH THREE Specimen Labeled As: 1 CERVICAL/ENDOCER VICAL CYTO MATERIAL - Edited by: [id number] [facility] ANATOMIC PATHOLOGY - [facility] THREE Diagnosis GYNE PAP SMEAR ADEQUACY: Satisfactory GENERAL DIAGNOSTIC CATEGORY: Within NORMAL limits No pathogenic organisms seen Edited by: [id number] [facility] ANATOMIC PATHOLOGY - BIOTECH THREE Gynecologic Clinical Data Specimen source:, VAGINAL/CERVICAL (1 SLIDE) [facility] ANATOMIC PATHOLOGY - BIOTE[facility] THREE Gynecologic Clinical Data First date of LMP:, [facility] ANATOMIC PATHOLOGY - [facility] THREE Gynecologic Clinical Data Gynecologic findings:, NONE GIVEN [facility] ANATOMIC PATHOLOGY - BIOTECH THREE Marker 1 EC,MAIKEL MERARI [facility] ANATOMIC PATHOLOGY - BIOTECH THREE Marker 2 LINSEY,RECEIVED IN CYTOLOGY [facility] ANATOMIC PATHOLOGY - BIOTECH THREE Marker 3 WNL,Within Normal limits [facility] ANATOMIC PATHOLOGY - BIOTECH THREE Cc Results To SELENE WESLEY [id number] [facility] ANATOMIC PATHOLOGY - BIOTECH THREE Signature REPORT SIGNED: MAIKEL GAGE 08/23/99 [facility] ANATOMIC PATHOLOGY - BIOTECH THREE Sign Out Audit MAIKEL GAGE [id number] FINAL NEW [place] [id number] [facility] ANATOMIC PATHOLOGY - BIOTECH THREE Cytology / Unknown 9 12:22 PM EST 08/02/1999 12:22 PM EST Radha Srinivasan MD LAB PATHOLOGY/CYTOLOGY ORDERABLE S Final Result [facility] ANATOMIC PATHOLOGY - BIOTECH THREE [address] [place] [address], from Last 3 Months or Most Recently Relevant to Health Maintenance [place] [address] [address] Care Teams Tower Crane Operator Relationship Specialty Start Date End Date Alberto Seth MD [address] [place] [address] PCP - General 08/17/22
--- OUTSIDE RECORDS SUMMARY | 2025-06-12 16:42 | XMS_ITS | Clinical Summary ---
Author Organization [facility] Address [address] [place] [address] Care Team Providers Care Wild Life Photographer Name Role Phone Alberto Seth MD Primary Care Provider [phone] Allergies No known active allergies Medications Medication [...] at bedtime. 0 Active Vitamin D, Ergocalciferol, 71473 units CAPS Take by mouth. 0 Active [...] of 2) 12/30/2017 COVID-19 Vaccine ( season) 2025 04/27/2021, 04/03/2021 Influenza Vaccine (#1) [...] age to complete this topic Care Teams Wild Life Photographer Relationship Specialty Start Date End Date Alberto Seth MD [address] [place] [address] [place] [address] PCP - General Internal Medicine 08/30/22
--- OUTSIDE RECORDS SUMMARY | 2025-06-12 16:42 | XMS_ITS | Clinical Summary ---
Author Organization [facility] Address [address] [place] [address] Phone Care Team Providers [employer] Teacher Name Role Phone Alberto Seth MD Primary Care Provider [phone] Allergies Active Allergy Reactions Criticality Noted Date Comments Piperacillin-Tazobactam Hives Medium 02/08/2025 Medications acetaminophen (TylenoL) 325 mg tablet Take 2 tablets (650 mg total) by mouth. 2 Active fluticasone propionate (FLONASE) 50 mcg/actuation nasal spray Administer 2 sprays into each nostril 1 (one) time each day. 4 Active prednisoLONE acetate (PRED FORTE) 1 % ophthalmic suspension INSTILL 1 DROP INTO BOTH EYES 4 TIMES A DAY 4 Active propranoloL (INDERAL) 20 mg tablet Take 1 tablet (20 mg total) by mouth 2 (two) times a day. 2 Active omeprazole (PriLOSEC) 40 mg capsuleIndicatio ns:Dyspepsia Take 1 capsule (40 mg total) by mouth 1 (one) time each day. Do not crush or chew. 30 each 11 5 11/26/19 26 Active polyethylene glycol (MIRALAX) 17 gram packetIndication s:Constipation, unspecified constipation type Take 17 g by mouth 1 (one) time each day if needed for constipation. 510 g 5 11/26/19 26 Active gabapentin (NEURONTIN) 300 mg capsule Take 1 capsule (300 mg total) by mouth 3 (three) times a day. 270 each 1 5 Active cyclobenzaprine (FLEXERIL) 10 mg tablet Take 1 tablet (10 mg total) by mouth 3 (three) times a day if needed for muscle spasms for up to 10 days. 15 tablet 5 Active lidocaine HCL 4 % cream Apply topically 3 (three) times a day if needed (pain). 15 g 5 Active escitalopram (LEXAPRO) 5 mg tablet Take 1 tablet (5 mg total) by mouth 1 (one) time each day. for 30 days 5 Active methocarbamoL (ROBAXIN) 750 mg tablet Take 1 tablet (750 mg total) by mouth 4 (four) times a day. 20 each 5 Active cyanocobalamin (VITAMIN B-12) 1,000 mcg tablet Take 1 tablet (1,000 mcg total) by mouth 1 (one) time each day. 90 each 1 5 05/26/20 25 cholecalciferol (VITAMIN D-3) 50 mcg (2,000 unit) tablet Take 1 tablet (2,000 Units total) by mouth 1 (one) time each day. 90 tablet 1 5 05/26/20 25 Active Problems Problem Noted Date Diagnosed Date Chronic bilateral low back pain with bilateral s ciatica 02/25/2025 Assessment & Plan (02/28/2025 4:54 PM EDT): Pt also wanted to address her chronic LBP and b/l lateral leg pain. She gets pain in the distal lateral calves when she is laying down at night, n/t in 1st L >> R toe, feels some weakness in her feet. No incontinence (PCP notes referred her to [facility] for pelvic pain and fibroids on U/S.) She rates her back pain most days 8-05/21, fairly constant, on an occasional good day 03/20. She had multiple L/S injections in the past, states the first one helped 6 months, then each time helped less time. She uses heat/ice, Tylenol for her neck and back issues. Pt had L/S MRI 01/24/24 [facility] that shows L5-S1 DDD, pars defects with Gr 1 spondylolisthesis, Modic changes, L>R foraminal stenosis. I reviewed her MRI images with her on the computer. She has severe back pain, L>R lateral leg pain, L>R EHL weakness. I will review her L/S MRI with Dr. Kirkland and see if she recommends surgery. ADDENDUM 02/28/2025: I reviewed patient's lumbar MRI with Dr. Kirkland, she notes L5-S1 spondylolisthesis, with left foraminal stenosis. She is requesting we check lumbar spine flexion-extension x-rays. I will have patient follow-up with Dr. Kirkland after her C-spine MRI is completed, to review all imaging and decide on plan. Abdominal pain 02/08/2025 Epigastric pain 12/20/2024 Insomnia 12/20/2024 Neck pain 12/20/2024 Overview (12/20/2024): xrays 07/27/11 DDD C6-C7 Follow up [facility] & [facility] Multilevel djd of spine and myofascial pain Referred to spine for epidural injection as well as pain clinic. Assessment & Plan (02/25/2025 9:14 PM EDT): Patient describes chronic severe neck pain, that seems to have worsened after a SAH/stroke March 2022 (pt states had stroke and SAH at same hospitalization, was transferred from [facility] [place] [facility] [place] r/o aneurysm as cause of non-traumatic SAH, per pt her testing at [facility] was negative for [place], I could not find documents online. [facility] ED notes mention significant SAH on CT, also noted to have left facial droop on exam). She notes L>R neck and upper trapezius pain and spasm, n/t left shoulder, and chronic pain in upper bilateral torso (just posterior and slightly below axilla). She c/o occipital EVANS sxs on the right, saw Dr. Young in the past for occipital nerve blocks which helped temporarily. She rates her neck pain on avg day 6/10, can get up to 9-10/10 once a week. She had PT for about 4 weeks, ended about 2-3 weeks, no significant improvement. Pt states she has had left tongue and perioral numbness since the stroke/SAH. She also c/o right ear pain (ENT notes reviewed, pt has b/l TMJ). ([facility] notes 04/23/22 mention pt had left facial numbness after SAH). Pt has severe neck and left arm pain, persists after PT. C/S X-ray 11/19/24 shows moderate degenerative endplate changes at C4-5, C5-6, C6-7. I put in a new order for C/S MRI. I also gave her a new P.T. rx to also try massage to traps and TENS unit, may help neck and occipital pain. She would like a TENS unit to use at home, will order. Will call pt after MRI with results. Urinary incontinence 12/20/2024 Otalgia of right ear 11/29/2023 Overview (12/20/2024): Otalgia, right ear; Note: Date Diagnosed: 11/29/2023 2:29 PM (H92.01) Gastroesophageal reflux disease without esophagi tis 10/18/2023 Overview (12/20/2024): Gastro-esophageal reflux disease without esophagitis; Note: Date Diagnosed: 10/18/2023 12:22 PM (K21.9) Posterior rhinorrhea 10/18/2023 Overview (12/20/2024): Postnasal drip; Note: Date Diagnosed: 10/18/2023 12:22 PM (R09.82) Tinnitus of right ear 10/18/2023 Overview (12/20/2024): Tinnitus, right ear; Note: Date Diagnosed: 10/18/2023 12:21 PM (H93.11) Subarachnoid hemorrhage (CMS/HCC V24, CMS/HCC V2 8) 05/04/2022 Obesity (BMI 30.0-34.9) 08/31/2021 Bilateral temporomandibular joint pain Overview (12/20/2024): Arthralgia of bilateral temporomandibular joint; Note: Date Diagnosed: 06/17/2020 3:34 PM (M26.623) Nasal congestion 06/17/2020 Overview (12/20/2024): Nasal congestion; Note: Date Diagnosed: 06/17/2020 3:34 PM (R09.81) Pruritus 06/17/2020 Overview (12/20/2024): Other pruritus; Note: Date Diagnosed: 06/17/2020 3:34 PM (L29.8) Bilateral tinnitus 06/17/2020 Overview (12/20/2024): Tinnitus, bilateral; Note: Date Diagnosed: 06/17/2020 3:34 PM (H93.13) Chronic left-sided headache 05/19/2020 Hyperesthesia 03/23/2020 Overview (09/23/2024): Last Assessment & Plan: I explained to Lupis that her conglomerate of symptoms seems like it could be related to some kind of neurologic etiology. I recommended she return to Dr. Young to see if he agrees and if so, I can refer her to a Neurologist. I recommended she consider restarting Gabapentin which did not bother her in the past. Vaginal atrophy 10/01/2019 Overview (09/23/2024): Last Assessment & Plan: Estrace cream as noted. Vulvar atrophy 10/01/2019 Overview (09/23/2024): Last Assessment & Plan: I recommended that Lupis continue the estrogen cream for symptomatic dryness secondary to vulvar and vaginal atrophy, which has improved with use. B12 deficiency 06/27/2019 Vitamin D deficiency 03/01/2019 Myofascial pain 11/13/2018 Chronic idiopathic constipation 12/14/2017 Intramural leiomyoma of uterus 12/14/2017 Cervical radiculitis 08/18/2017 Overview (09/23/2024): MRI 04/2017 follows with physiatry Leukopenia 02/02/2017 Overview (09/23/2024): Chronic and stable, normal differential Positive hepatitis C antibody test 09/29/2016 Overview (09/23/2024): Viral load not detected Acute folliculitis 02/23/2016 Tooth pain 10/01/2015 Pelvic pain in female 09/02/2015 Overview (09/23/2024): 09/28/15- 2.3 cm uterine lesion likely fibroid of uterus. F/u in 6 months for pelvic ultrasound. U/s abdomen- normal. Chronic vaginitis 09/01/2015 Chronic paronychia of finger of left hand 2014 Acute gastritis without hemorrhage 09/01/2015 Bruise 12/02/2014 Anemia 10/22/2014 Chronic abdominal pain 10/21/2014 Overview (09/23/2024): Follows with GI s/p NM hepatobiliary scan 05/[address] [place] [facility] Chest wall pain, chronic 08/20/2014 Constipation 08/20/2014 Headache 08/20/2014 Contusion, chest wall 08/03/2014 Overview (12/20/2024): 07/10/14- [facility] [place]. Depression 03/31/2014 Gastritis 03/31/2014 Knee pain, left 03/31/2014 Neutropenia, unspecified (CMS/HCC V24) 4 Overview (12/20/2024): hiv- negetive Shoulder pain, left 03/31/2014 Fatigue 03/27/2014 Tiredness 03/27/2014 Ovarian cyst 03/27/2014 Shoulder pain, right 10/10/2012 Overview (12/20/2024): Xray of rt shoulder- negative. Burning sensation of feet 05/09/2011 Overview (12/20/2024): Neg EMG LE's @ [facility] 07/25/11 B12 = 376 05/09/11 HgbA1C = 5.4 07/11/12 Paresthesias in left hand 05/09/2011 Overview (12/20/2024): [facility] Hepatitis C 08/13/2009 Overview (12/20/2024): DX '04 TX '05 Undetectable VL 11/17/09- present 12/23- neg viral load, Immune to hep a and B infection Encounters Date Type Department Care Team Description 04/03/2025 1:45 PM EDT Office Visit [facility] Hematology Oncology [address] [place] [phone] Armando Low MD Leukopenia, unspecified type 03/25/2025 2:34 PM EDT - 03/25/2025 11:59 PM EDT Hospital Encounter [facility] Xray [address] [place] [phone] Chronic bilateral low back pain with bilateral sciatica Discharge Disposition: Home or Self Care 03/25/2025 2:05 PM EDT Lab Draw Station - [address] [facility] [address] [place] [phone] B12 deficiency; Vitamin D deficiency; Elevated alkaline phosphatase level; Diarrhea, unspecified type 03/25/2025 1:40 PM EDT Consult Gastroenterology - [place] [address] [facility] [address] [address] [place] [phone] Kathy Richardson PA Diarrhea, unspecified type (Primary Dx); Upper abdominal pain; RLQ abdominal pain; Gastroesophageal reflux disease without esophagitis 03/24/2025 Telephone Neurosurgery [place] [address] [place] [phone] Jessica Ramirez PA 03/17/2025 5:53 PM EDT - 03/17/2025 11:59 PM EDT Hospital Encounter [facility] MRI [address] [place] [phone] Chronic neck pain Discharge Disposition: Home or Self Care 03/17/2025 5:29 AM EDT - 03/17/2025 10:53 AM EDT Emergency [facility] Emergency [address] [place] [address] Episodic tension-type headache, not intractable (Primary Dx); Epigastric pain Discharge Disposition: Home or Self Care from Last 3 Months Immunizations Immunization Administration Dates Next Due Influenza Quadravalent, MDCK , 0.5ml, preservative free (Flucelvax) 6mo and older 09/22/2022,06/03/2021,05/19/2020,11/13 Influenza trivalent, with pr eservative (Fluzone; Afluria) 6mo and older 05/28/2024,05/28/2013,07/10/2012 Meningococcal MCV4P 08/07/2017 Tdap Tetanus diptheria acell ular pertussis (Boostrix; Adacel) 7yo and older 03/23/2017,05/28/2013 Surgical History Surgery Date Site/Laterality Comments OTHER SURGICAL HISTORY PROCEDURE: DENIES PREVIOUS SURGERY COLONOSCOPY 07/18/2018 polyp Medical History Medical History Date Comments Stroke (CMS/HCC V24, CMS/HCC V28) Leukopenia 02/02/2017 Chronic and stab le, normal differential Cervical radiculitis 08/18/2017 MRI 04/2017 follows with physiatry Chronic abdominal pain 12/14/2017 Follows w ith GI s/p NM hepatobiliary scan 05/2018 Positive hepatitis C antibody test 09/29/2016 Viral load not detected Intramural leiomyoma of uterus 12/14/2017 Chronic idiopathic constipation 12/14/2017 Myofascial pain 11/13/2018 Vitamin D deficiency 03/01/2019 Family History Medical History Relation Name Comments No Known Problems Aunt No Known Problems Brother No Known Problems Father No Known Problems Maternal Grandfather No Known Problems Maternal Grandmother Cancer Mother Leukemia Mother at 69 No Known Problems Other No Known Problems Paternal Grandfather No Known Problems Paternal Grandmother No Known Problems Sister No Known Problems Uncle Blindness Neg Hx Breast cancer Neg Hx Cataracts Neg Hx Colon cancer Neg Hx Glaucoma Neg Hx Macular degeneration Neg Hx Strabismus Neg Hx Relation Name Status Comments Aunt Brother Father Alive Maternal Grandfather Maternal Grandmother Mother Other Paternal Grandfather Paternal Grandmother Sister Uncle Social History Tobacco Use Types Packs/Day Years Used Date Smoking Tobacco: Never Smokeless Tobacco: Never Tobacco Cessation:Counseling Given: Not Answered Alcohol Use Standard Drinks/Week Comments No 0 (1 standard drink = 0.6 oz pur e alcohol) Interpersonal Safety Answer Date Record ed Physical Abuse Unrecognized value 02/08/2025 Verbal Abuse Unrecognized value 02/08/2025 Comments No Sex and Gender Information Value Date Recorded Sex Assigned at Female 10/25/2024 3:45 PM EST Legal Sex Female 3:53 AM EST Gender Identity Female 10/25/2024 3:45 PM EST Sexual Orientation Straight 10/25/2024 3: 45 PM EST Obstetrics History Last Filed Vital Signs Vital Sign Reading Time Taken Comments Blood Pressure 119/70 04/03/2025 1:54 PM EDT Pulse 62 04/03/2025 1:54 PM EDT Temperature 36.3 C (97.3 F) 04/03/2025 1:54 PM EDT Respiratory Rate 17 03/17/2025 10:14 AM EDT Oxygen Saturation 100% 04/03/2025 1:54 PM EDT Inhaled Oxygen Concentration - - Weight 72.6 kg (160 lb) 04/03/2025 1:54 PM EDT Height 160 cm (5' 3 ) 04/03/2025 1:54 PM EDT Body Mass Index 28.34 04/03/2025 1:54 PM EDT Plan of Treatment Upcoming Encounters Date Type Department Care Team (Late st Contact Info) Description 06/26/2025 1:40 PM EDT Office Visit Gastroenterology - [place] [address] [facility] [address] [facility] [address] [place] [phone] Kathy Richardson PA [address] [facility] [address] [place] [address] Health Maintenance Due Date Last Done Comments Hepatitis B Vaccines (1 of 3 - 19+ 3-dose series) 12/30/1986 Pneumococcal Vaccine: 50+ Years (1 of 1 - PCV) 12/30/2017 Zoster Vaccines (1 of 2) 12/30/2017 HIV Screening 08/20/2022 Social Influencers of Health Screening 08/20/2022 Depression Screening 09/11/2024 11/02/2023 COVID-19 Vaccine ( season) 2025 04/27/2021, 04/03/2021 Influenza Vaccine (#1) 2025 4, 09/22/2022, 06/03/2021, Additional history exists Breast Cancer Screening 06/29/2026 06/29/20 24, 06/29/2024, 06/03/2023, Additional history exists DTaP,Tdap,and Td Vaccines (3 - Td or Tdap) 03/23/2027 03/23/2017, 05/28/2013 Cholesterol Screening (Lipid Panel) 01/05/2028 01/04/2023 Cervical Cancer Screening: HPV 04/21/2028 04/21/2023 Colorectal Cancer Screening: Colonoscopy 07/18/2028 07/18/2018 RSV Immunization Adult Patients (1 - 1-dose 75+ series) 12/30/2042 Hepatitis C Screening Completed 02/01/2017 Meningococcal ACWY Vaccine Aged Out 08/07/2017 N o longer eligible based on patient's age to complete this topic HIB Vaccines Aged Out No longer eligi ble based on patient's age to complete this topic HPV Vaccines Aged Out No longer eligi ble based on patient's age to complete this topic Hepatitis A Vaccines Aged Out No long er eligible based on patient's age to complete this topic IPV Vaccines Aged Out No longer eligi ble based on patient's age to complete this topic MMR Vaccines Aged Out No longer eligi ble based on patient's age to complete this topic Meningococcal B Vaccine Aged Out No l onger eligible based on patient's age to complete this topic RSV Immunization Patients Under 20 months Aged Out No longer eligible based on patient's age to complete this topic Varicella Vaccines Aged Out No longer eligible based on patient's age to complete this topic Procedures Procedure Name Priority Date/Time Associated Diagnosis Comments XR LUMBAR SPINE 4+ VIEWS Routine 03/25/2025 2:50 PM EDT Chronic bilateral low back pain with bilateral sciatica CALPROTECTIN, STOOL Routine 03/25/2025 2 :25 PM EDT Diarrhea, unspecified type PANCREATIC ELASTASE 1 Routine 03/25/2025 2:25 PM EDT Diarrhea, unspecified type C-REACTIVE PROTEIN Routine 03/25/2025 2: 03 PM EDT Diarrhea, unspecified type ALKALINE PHOSPHATASE Routine 03/25/2025 2:03 PM EDT Elevated alkaline phosphatase level VITAMIN D 25 HYDROXY Routine 03/25/2025 2:03 PM EDT Vitamin D deficiency VITAMIN B12 Routine 03/25/2025 2:03 PM EDT B12 deficiency ECG ANNOTATED 03/18/2025 MR CERVICAL SPINE WO CONTRAST Routine 03/17/2025 6:44 PM EDT Chronic neck pain US ABDOMEN LIMITED STAT 03/17/2025 9: [address] HEAD WO CONTRAST STAT 03/17/2025 8 :03 AM EDT ECG 12-LEAD Routine 03/17/2025 7:49 AM EDT TROPONIN I HIGH SENSITIVITY STAT 03/17/2025 7:45 AM EDT LIPASE STAT Add-on 03/17/2025 6:38 AM EDT CBC WITH AUTO DIFFERENTIAL STAT 03/17/2025 6:38 AM EDT TROPONIN I HIGH SENSITIVITY STAT 03/17/2025 6:38 AM EDT MAGNESIUM STAT 03/17/2025 6:38 AM EDT COMPREHENSIVE METABOLIC PANEL STAT 03/17/2025 6:38 AM EDT CBC AND DIFFERENTIAL STAT 03/17/2025 6:38 AM EDT SCREENING MAMMOGRAPHY BI 2-VIEW BREAST INC CAD Routine 06/29/2024 12:18 PM EDT Encounter for screening mammogram for malignant neoplasm of breast HM DEPRESSION SCREENING Routine 11/02/2023 HPV Routine 04/21/2023 LIPID PANEL Routine 01/04/2023 COLONOSCOPY Routine 07/18/2018 HEPATITIS C SCREENING Routine 02/01/2017 from Last 3 Months or Most Recently Relevant to Health Maintenance Results * XR Lumbar Spine 4+ Views (03/25/2025 2:50 PM EDT) Anatomical Region Laterality Modality Spine, L-spine Radiographic Nina ging 03/26/2025 7:53 AM EDT Impressions 03/26/2025 7:59 AM EDT Grade 1, 9.4 mm anterior spondylolisthesis of L4 relative to L5. Spondylolysis of L5 is suspected. There is no abnormal relative bony motion with flexion and extension. Range of motion is limited, particularly with flexion. There is degenerative disc disease at the L5-S1 level. Code 39316 -------- FINAL REPORT -------- Dictated By: Walter Feliz Dictated Date: 03/26/2025 07:53 ET Assigned Physician: Walter Feliz Reviewed and Electronically Signed By: Walter Feliz Signed Date: 03/26/2025 07:59 ET Workstation ID: [id number] Transcribed By: Self Edit Transcribed Date: 03/26/2025 07:53 ET Narrative 03/26/2025 7:59 AM EDT HISTORY: The patient is a 59-year-old female with known spondylolisthesis of L5, presenting for follow-up. FINDINGS: Lateral views of the lumbosacral spine in neutral, flexion, and extension positions, along with an AP view, are obtained. The study demonstrates the 12th ribs to be rudimentary bilaterally. There is Grade 1, 9.4 mm anterior spondylolisthesis of L5 relative to S1 which is stable with flexion and extension. Alignment is otherwise anatomic. No fracture is seen and no osteolytic or osteoblastic lesion is demonstrated. Spondylolysis of L5 is suspected. There is marked narrowing of the L5-S1 disc space consistent with degenerative disc disease. The remaining disc spaces are well-maintained. Small degenerative osteophytes are present throughout the lumbar spine. There is no abnormal relative bony motion with flexion and extension. Range of motion is limited, particularly with flexion. Procedure Note Walter Feliz MD - 03/26/2025 HISTORY: The patient is a 59-year-old female with known spondylolisthesisof L5, presenting for follow-up. FINDINGS: Lateral views of the lumbosacral spine in neutral, flexion, andextension positions, along with an AP view, are obtained. The studydemonstrates the 12th ribs to be rudimentary bilaterally. There is Grade1, 9.4 mm anterior spondylolisthesis of L5 relative to S1 which is stablewith flexion and extension. Alignment is otherwise anatomic. No fractureis seen and no osteolytic or osteoblastic lesion is demonstrated.Spondylolysis of L5 is suspected. There is marked narrowing of the L5-S1disc space consistent with degenerative disc disease. The remaining discspaces are well-maintained. Small degenerative osteophytes are presentthroughout the lumbar spine. There is no abnormal relative bony motionwith flexion and extension. Range of motion is limited, particularly withflexion. IMPRESSION: Grade 1, 9.4 mm anterior spondylolisthesis of L4 relative to L5.Spondylolysis of L5 is suspected. There is no abnormal relative bonymotion with flexion and extension. Range of motion is limited,particularly with flexion. There is degenerative disc disease at the L5-Z1xypfv. Code 43914 -------- FINAL REPORT -------- Dictated By: Walter Feliz Dictated Date: 03/26/2025 07:53 ET Assigned Physician: Walter Fleiz Reviewed and Electronically Signed By: Walter Feliz Signed Date: 03/26/2025 07:59 ET Workstation ID: [id number] Transcribed By: Self Edit Transcribed Date: 03/26/2025 07:53 ET us Jessica ORTIZ IMG XR PROCEDURES Final Re sult * Pancreatic elastase 1 (03/25/2025 2:25 PM EDT) Pancreatic Elastase 1 945.0 >200 mcg/g 03/28/2025 1:29 PM EDT [facility] Comment: Adult and Pediatric Referance Ranges for Pancreatic Elastase-1: Normal: >200 mcg/g Moderate Pancreatic Insufficiency: 100-200 mcg/g Severe Pancreatic Insufficiency: <100 mcg/g Test performed at [facility], [address] [place] [address] Jennifer Welch MD, PhD - [employer] The[employer]ist Stool Rectum structure / Unknown Non-blood Collection / Unknown 03/25/2025 2:25 PM EDT 03/25/2025 2:[address] [facility] BODY FLUIDS AND STOOLS OR DERABLES Final Result Performing Organization Address [facility] Co de Phone Number [facility] [address] [place] [address] * Calprotectin, stool (03/25/2025 2:25 PM EDT) Calprotectin, Fecal 6.2 <50 mcg/g 03/28/2025 1:29 PM EDT [facility] Comment: <50 mcg/g Normal 50 - 120 mcg/g Borderline >120 mcg/g Abnormal Borderline results suggest repeat testing in 4 to 6 weeks. Test performed at [facility], [address] [place] [address] Jennifer Welch MD, PhD - [employer] Therapist Stool Rectum structure / Unknown Non-blood Collection / Unknown 03/25/2025 2:25 PM EDT 03/25/2025 2:25 PM EDT Kathy ORTIZ LAB BODY FLUIDS AND STOOLS OR DERABLES Final Result Performing Organization Address [facility] Co de Phone Number [address] [place] [address] * (ABNORMAL) Vitamin D 25 hydroxy (03/25/2025 2:03 PM EDT) Vit D, 25-Hydroxy 24.0(L) 30.0 - 80.0 ng/mL LAB CHEMISTRY METHOD 03/25/2025 7:15 PM EDT [facility] Blood Venous blood specimen / Unknown Venipuncture / Unknown 03/25/2025 2:03 PM EDT 03/25/2025 2:03 PM EDT Connor ORTIZ LAB BLOOD ORDERABLES Fi nal Result Performing Organization Address [facility] Co de Phone Number [facility] [address] [place] [address], [place] [phone] * C-reactive protein (03/25/2025 2:03 PM EDT) [facility] C-Reactive Protein <0.29 <=0.50 mg/dL LAB CHEMISTRY METHOD 03/25/2025 6:58 PM EDT [facility] Blood Venous blood specimen / Unknown Venipuncture / Unknown 03/25/2025 2:03 PM EDT 03/25/2025 2:03 PM EDT Kathy ORTIZ LAB BLOOD ORDERABLES Final Re sult Performing Organization Address [facility] de Phone Number [facility] [address] [place] [address], [place] [phone] * Alkaline phosphatase (03/25/2025 2:03 PM EDT) [facility] Alkaline Phosphatase 121 42 - 121 unit/L LAB CHEMISTRY METHOD 03/25/2025 7:21 PM EDT [facility] Blood Venous blood specimen / Unknown Venipuncture / Unknown 03/25/2025 2:03 PM EDT 03/25/2025 2:03 PM EDT Connor ORTIZ LAB BLOOD ORDERABLES Fi nal Result Performing Organization Address [facility] [place]/ZIP Co de Phone Number [facility] [address] [place] [address], [place] [phone] * Vitamin B12 (03/25/2025 2:03 PM EDT) Vitamin B-12 605 250 - 900 pcg/mL LAB CHEMISTRY METHOD 03/25/2025 7:21 PM EDT [facility] Blood Venous blood specimen / Unknown Venipuncture / Unknown 03/25/2025 2:03 PM EDT 03/25/2025 2:03 PM EDT Connor ORTIZ LAB BLOOD ORDERABLES Fi nal Result [facility] [address] [place] [address], [place] [phone] * ECG-Annotated (03/18/2025) Provider Onbase MD ECG ORDERABLES Final Result * MR Cervical Spine wo Contrast (03/17/2025 6:44 PM EDT) Anatomical Region Laterality Modality C-spine, Spine Magnetic Resonan ce 03/18/2025 9:06 AM EDT Impressions 03/18/2025 9:09 AM EDT Mild degenerative changes of the cervical spine as detailed above. -------- FINAL REPORT -------- Dictated By: Elliot Copeland Dictated Date: 03/18/2025 09:06 ET Assigned Physician: Elliot Copeland Reviewed and Electronically Signed By: Elliot Copeland Signed Date: 03/18/2025 09:09 ET Workstation ID: [id number] Transcribed By: Self Edit Transcribed Date: 03/18/2025 09:06 ET Narrative 03/18/2025 9:09 AM EDT PROCEDURE: MRI of the cervical spine without intravenous contrast. TECHNIQUE: Sagittal and axial multisequence MRI of the cervical spine without intravenous contrast administration. HISTORY: Cervical radiculopathy, no red flags neck pain, left shoulder and arm pain COMPARISON: Radiographs dated 11/19/2024. FINDINGS: Visualized portions of the brain and skull base are normal. The paraspinous soft tissues are normal. No marrow infiltrative lesion. Modic endplate changes at C4-5 and C5-6. Normal alignment. The cervical cord is normal in caliber and signal. Cervical disc levels: C2-3: Minimal degenerative irregularity of the facet joints. No spinal or foraminal stenosis. C3-4: Minimal degenerative irregularity of the facet joints. No spinal or foraminal stenosis. C4-5: Mild disc space height loss and endplate irregularity. Small anterior endplate osteophytes. Small bilateral uncovertebral spurs and a small symmetric disc bulge with slight flattening of the cord. No significant spinal or foraminal stenosis. C5-6: Mild disc space height loss and endplate irregularity. Minimal anterior endplate osteophytes. Small right larger than left uncovertebral spurs and a small symmetric disc osteophyte complex. Mild right foraminal stenosis. No spinal stenosis. C6-7: Mild endplate irregularity. Small anterior endplate osteophytes. Minimal bilateral uncovertebral spurs and a minimal symmetric disc osteophyte complex. No significant spinal or foraminal stenosis. C7-T1: No significant disc or facet abnormality. No spinal or foraminal stenosis. Procedure Note Elliot Copeland MD - 03/18/2025 PROCEDURE: MRI of the cervical spine without intravenous contrast. TECHNIQUE: Sagittal and axial multisequence MRI of the cervical spinewithout intravenous contrast administration. HISTORY: Cervical radiculopathy, no red flags neck pain, left shoulder and arm pain COMPARISON: Radiographs dated 11/19/2024. FINDINGS: Visualized portions of the brain and skull base are normal. The paraspinous soft tissues are normal. No marrow infiltrative lesion. Modic endplate changes at C4-5 and C5-6.Normal alignment. The cervical cord is normal in caliber and signal. Cervical disc levels: C2-3: Minimal degenerative irregularity of the facet joints. No spinal orforaminal stenosis. C3-4: Minimal degenerative irregularity of the facet joints. No spinal orforaminal stenosis. C4-5: Mild disc space height loss and endplate irregularity. Smallanterior endplate osteophytes. Small bilateral uncovertebral spurs and asmall symmetric disc bulge with slight flattening of the cord. Nosignificant spinal or foraminal stenosis. C5-6: Mild disc space height loss and endplate irregularity. Minimalanterior endplate osteophytes. Small right larger than left uncovertebralspurs and a small symmetric disc osteophyte complex. Mild right foraminalstenosis. No spinal stenosis. C6-7: Mild endplate irregularity. Small anterior endplate osteophytes.Minimal bilateral uncovertebral spurs and a minimal symmetric discosteophyte complex. No significant spinal or foraminal stenosis. C7-T1: No significant disc or facet abnormality. No spinal or foraminalstenosis. IMPRESSION: Mild degenerative changes of the cervical spine as detailed above. -------- FINAL REPORT -------- Dictated By: Elliot Copeland Dictated Date: 03/18/2025 09:06 ET Assigned Physician: Elliot Copeland Reviewed and Electronically Signed By: Elliot Copeland Signed Date: 03/18/2025 09:09 ET Workstation ID: [id number] Transcribed By: Self Edit Transcribed Date: 03/18/2025 09:06 ET us Jessica ORTIZ IMG MRI PROCEDURES Final R esult * US Abdomen Limited (03/17/2025 9:11 AM EDT) Anatomical Region Laterality Modality Body Ultrasound 03/17/2025 9:29 AM EDT Impressions 03/17/2025 9:30 AM EDT Normal right upper quadrant ultrasound. -------- FINAL REPORT -------- Dictated By: Elliot Copeland Dictated Date: 03/17/2025 09:29 ET Assigned Physician: Elliot Copeland Reviewed and Electronically Signed By: Elliot Copeland Signed Date: 03/17/2025 09:30 ET Workstation ID: [id number] Transcribed By: Self Edit Transcribed Date: 03/17/2025 09:29 ET Narrative 03/17/2025 9:30 AM EDT PROCEDURE: Right upper quadrant ultrasound. HISTORY: postprandial pain. COMPARISON: 02/08/2025. TECHNIQUE: Grayscale, color Doppler, and spectral Doppler ultrasound evaluation of the right upper quadrant of the abdomen. FINDINGS: LIVER: Normal echotexture. No focal lesion. Normal flow in the main portal vein. BILIARY: Normal appearance of the gallbladder and biliary tree. Negative sonographic Cardona sign. PANCREAS: Visualized portions are normal. RIGHT KIDNEY: Normal size and echotexture. No hydronephrosis or focal lesion. Procedure Note Elliot Copeland MD - 03/17/2025 PROCEDURE: Right upper quadrant ultrasound. HISTORY: postprandial pain. COMPARISON: 02/08/2025. TECHNIQUE: Grayscale, color Doppler, and spectral Doppler ultrasoundevaluation of the right upper quadrant of the abdomen. FINDINGS: LIVER: Normal echotexture. No focal lesion. Normal flow in the mainportal vein. BILIARY: Normal appearance of the gallbladder and biliary tree. Negativesonographic Cardona sign. PANCREAS: Visualized portions are normal. RIGHT KIDNEY: Normal size and echotexture. No hydronephrosis or focallesion. IMPRESSION: Normal right upper quadrant ultrasound. -------- FINAL REPORT -------- Dictated By: Elliot Copeland Dictated Date: 03/17/2025 09:29 ET Assigned Physician: Elliot Copleand Reviewed and Electronically Signed By: Elliot Copeland Signed Date: 03/17/2025 09:30 ET Workstation ID: [id number] Transcribed By: Self Edit Transcribed Date: 03/17/2025 09:29 ET us Marnie ORTIZ IMG US PROCEDURES Final Result * CT Head wo Contrast (03/17/2025 8:03 AM EDT) Anatomical Region Laterality Modality Head and Neck Computed Tomogra phy 03/17/2025 8:21 AM EDT Impressions 03/17/2025 8:32 AM EDT No acute intracranial findings. -------- FINAL REPORT -------- Dictated By: Elliot Copeland Dictated Date: 03/17/2025 08:21 ET Assigned Physician: Elliot Copeland Reviewed and Electronically Signed By: Elliot Copeland Signed Date: 03/17/2025 08:32 ET Workstation ID: [id number] Transcribed By: Self Edit Transcribed Date: 03/17/2025 08:30 ET Narrative 03/17/2025 8:32 AM EDT PROCEDURE: Noncontrast head CT. HISTORY: Dizziness, non-specific hx SAH. COMPARISON: 05/09/2024. TECHNIQUE: Noncontrast head CT with coronal and sagittal reformats. Dose length product: 809 mGy-cm. FINDINGS: BRAIN: No hemorrhage, edema, mass, or extra-axial fluid collection. No CT evidence of an acute large vessel infarct. Ventricles and sulci are age commensurate. Atherosclerotic calcifications of the V4 segments and carotid siphons. ORBITS: Normal. SINUSES/MASTOIDS: Anterior clinoids are pneumatized and communicate with the sphenoid sinuses. CALVARIUM: Normal. OTHER: There are small postinflammatory calcifications in the midline nasopharynx. Mild degenerative changes of the temporomandibular joints. Procedure Note Elliot Copeland MD - 03/17/2025 PROCEDURE: Noncontrast head CT. HISTORY: Dizziness, non-specific hx SAH. COMPARISON: 05/09/2024. TECHNIQUE: Noncontrast head CT with coronal and sagittal reformats. Dose length product: 809 mGy-cm. FINDINGS: BRAIN: No hemorrhage, edema, mass, or extra-axial fluid collection. No CTevidence of an acute large vessel infarct. Ventricles and sulci are agecommensurate. Atherosclerotic calcifications of the V4 segments andcarotid siphons. ORBITS: Normal. SINUSES/MASTOIDS: Anterior clinoids are pneumatized and communicate withthe sphenoid sinuses. CALVARIUM: Normal. OTHER: There are small postinflammatory calcifications in the midlinenasopharynx. Mild degenerative changes of the temporomandibular joints. IMPRESSION: No acute intracranial findings. -------- FINAL REPORT -------- Dictated By: Elliot Copeland Dictated Date: 03/17/2025 08:21 ET Assigned Physician: Elliot Copeland Reviewed and Electronically Signed By: Elliot Copeland Signed Date: 03/17/2025 08:32 ET Workstation ID: [id number] Transcribed By: Self Edit Transcribed Date: 03/17/2025 08:30 ET Marnie ORTIZ IMG CT PROCEDURES Final Result * ECG 12 lead (03/17/2025 7:49 AM EDT) [facility] Ventricular Rate ECG 53 BPM GEMUSE Atrial Rate 53 BPM GEMUSE P-R Interval 232 ms GEMUSE QRS Duration 74 ms GEMUSE Q-T Interval 454 ms GEMUSE QTc 426 ms GEMUSE P Wave [place] 62 degrees GEMUSE R [place] 10 degrees GEMUSE T [place] 31 degrees GEMUSE ECG Interpretation Sinus bradycardia with 1st degree A-V block Possible Anterior infarct (cited on or before 09-DEC-2024) Abnormal ECG When compared with ECG of 09-DEC-2024 02:39, No significant change was found Confirmed by MD Merino Christopher ([id number]) on 03/18/2025 8:24:57 AM GEMUSE 03/17/2025 7:49 AM EDT 03/18/2025 8:24 AM EDT Marnie ORTIZ ECG ORDERABLES Final Result GEMUSE * Troponin I high sensitivity (NOW and then in 1 hour) (03/17/2025 7:45 AM EDT) Only the most recent of2 resultswithin the time period is included. [facility] High Sensitivity Troponin I 4 <=54 ng/L LAB CHEMISTRY METHOD 03/17/2025 8:53 AM EDT [facility] Blood Venous blood specimen / Unknown Venipuncture / Unknown 03/17/2025 7:45 AM EDT 03/17/2025 8:22 AM EDT Narrative [facility] - 03/17/2025 8:53 AM EDT High levels of biotin in samples may falsely decrease hsTroponin values. Use caution when interpreting hsTroponin results in patients taking biotin who exhibit renal impairment (eGFR <60) or in patients taking more than 20 mg/day of biotin. us Marnie ORTIZ LAB BLOOD ORDERABLES Final Resul t [facility] [address] [place] [address], * (ABNORMAL) CBC auto differential (03/17/2025 6:38 AM EDT) WBC 4.4(L) 4.8 - 10.8 K/mcL LAB HEMETOLOGY METHOD 03/17/2025 8:00 AM [facility] RBC 4.00 3.80 - 4.80 M/mcL LAB HEMETOLOGY METHOD 03/17/2025 8:00 AM [facility] Hemoglobin 11.0(L) 11.5 - 16.0 g/dL LAB HEMETOLOGY METHOD 03/17/2025 8:00 AM [facility] Hematocrit 34.6(L) 35.0 - 47.0 % LAB HEMETOLOGY METHOD 03/17/2025 8:00 AM [facility] MCV 86.3 79.0 - 98.0 FL LAB HEMETOLOGY METHOD 03/17/2025 8:00 AM [facility] MCH 27.4 27.0 - 32.0 pcg LAB HEMETOLOGY METHOD 03/17/2025 8:00 AM [facility] MCHC 31.8(L) 32.0 - 37.0 g/dL LAB HEMETOLOGY METHOD 03/17/2025 8:00 AM [facility] RDW 14.6 11.0 - 15.0 % LAB HEMETOLOGY METHOD 03/17/2025 8:00 AM [facility] Platelets 275 130 - 400 K/mcL LAB HEMETOLOGY METHOD 03/17/2025 8:00 AM [facility] MPV 11.7(H) 7.0 - 11.0 FL LAB HEMETOLOGY METHOD 03/17/2025 8:00 AM [facility] NRBC 0.0 <1.0 % LAB HEMETOLOGY METHOD 03/17/2025 8:00 AM [facility] NRBC Absolute 0.00 <0.10 K/mcL LAB HEMETOLOGY METHOD 03/17/2025 8:00 AM [facility] Neutrophils Relative 63.9 % LAB HEMETOLOGY METHOD 03/17/2025 8:00 AM [facility] Lymphocytes Relative 25.6 % LAB HEMETOLOGY METHOD 03/17/2025 8:00 AM [facility] Monocytes Relative 9.1 % LAB HEMETOLOGY METHOD 03/17/2025 8:00 AM [facility] Eosinophils Relative 0.7 % LAB HEMETOLOGY METHOD 03/17/2025 8:00 AM [facility] Basophils Relative 0.5 % LAB HEMETOLOGY METHOD 03/17/2025 8:00 AM [facility] Immature Granulocytes Relative 0.2 % LAB HEMETOLOGY METHOD 03/17/2025 8:00 AM [facility] Neutrophils Absolute 2.80 1.50 - 7.00 K/mcL LAB HEMETOLOGY METHOD 03/17/2025 8:00 AM [facility] Lymphocytes Absolute 1.12 1.00 - 5.00 K/mcL LAB HEMETOLOGY METHOD 03/17/2025 8:00 AM [facility] Monocytes Absolute 0.40 0.20 - 1.00 K/mcL LAB HEMETOLOGY METHOD 03/17/2025 8:00 AM [facility] Eosinophils Absolute 0.03 0.00 - 0.50 K/mcL LAB HEMETOLOGY METHOD 03/17/2025 8:00 AM EDT [facility] Basophils Absolute 0.02 0.00 - 0.20 K/[facility] HEMETOLOGY METHOD 03/17/2025 8:00 AM EDT [facility] Immature Granulocytes Absolute 0.01 0.00 - 0.03 K/[facility] LAB HEMETOLOGY METHOD 03/17/2025 8:00 AM EDT [facility] Blood Venous blood specimen / Unknown Venipuncture / Unknown 03/17/2025 6:38 AM EDT 03/17/2025 7:48 AM EDT Marnie ORTIZ LAB BLOOD ORDERABLES Final Resul t Performing Organization Address City/[facility] [place]/ZIP Co de Phone Number [facility] [address] [place] [address], * Magnesium (03/17/2025 6:38 AM EDT) Magnesium 2.1 1.9 - 2.6 mg/dL LAB CHEMISTRY METHOD 03/17/2025 9:32 AM EDT [facility] Blood Venous blood specimen / Unknown Venipuncture / Unknown 03/17/2025 6:38 AM EDT 03/17/2025 7:48 AM EDT Marnie ORTIZ LAB BLOOD ORDERABLES Final Resul t [facility] [address] [place] [address], [place] [phone] * Lipase (03/17/2025 6:38 AM EDT) Lipase 26 13 - 75 unit/L LAB CHEMISTRY METHOD 03/17/2025 9:32 AM EDT [facility] Blood Venous blood specimen / Unknown Venipuncture / Unknown 03/17/2025 6:38 AM EDT 03/17/2025 7:48 AM EDT Marnie ORTIZ LAB BLOOD ORDERABLES Final Resul t [facility] [address] [place] [address], * (ABNORMAL) Comprehensive metabolic panel (03/17/2025 6:38 AM EDT) Sodium 138 133 - 145 mmol/L LAB CHEMISTRY METHOD 03/17/2025 9:32 AM [facility] Potassium 4.4 3.5 - 5.5 mmol/L LAB CHEMISTRY METHOD 03/17/2025 9:32 AM [facility] Comment:Hemolysis present Chloride 109 96 - 110 mmol/L LAB CHEMISTRY METHOD 03/17/2025 9:32 AM [facility] CO2 25 21 - 32 mmol/L LAB CHEMISTRY METHOD 03/17/2025 9:32 AM [facility] Anion Gap 4 3 - 11 LAB CHEMISTRY METHOD 03/17/2025 9:32 AM [facility] Glucose 107(H) 70 - 100 mg/dL LAB CHEMISTRY METHOD 03/17/2025 9:32 AM [facility] BUN 12 5 - 25 mg/dL LAB CHEMISTRY METHOD 03/17/2025 9:32 AM [facility] Creatinine 0.72 0.50 - 1.10 mg/dL LAB CHEMISTRY METHOD 03/17/2025 9:32 AM [facility] eGFR 98 >=60 mL/min/1. 73m2 LAB CHEMISTRY METHOD 03/17/2025 9:32 AM [facility] Comment:Calculation based on the Chronic Kidney Disease Epidemiology Collaboration (CKD-EPI) equation refit without adjustment for race. BUN/Creatinine Ratio 16.7 LAB CHEMISTRY METHOD 03/17/2025 9:32 AM EDT [facility] Calcium 9.0 8.5 - 10.5 mg/dL LAB CHEMISTRY METHOD 03/17/2025 9:32 AM EDT [facility] AST (SGOT) 32 10 - 42 unit/L LAB CHEMISTRY METHOD 03/17/2025 9:32 AM EDT [facility] ALT (SGPT) 23 10 - 60 unit/L LAB CHEMISTRY METHOD 03/17/2025 9:32 AM EDT [facility] Alkaline Phosphatase 103 42 - 121 unit/L LAB CHEMISTRY METHOD 03/17/2025 9:32 AM [facility] Total Protein 6.8 6.0 - 8.0 g/dL LAB CHEMISTRY METHOD 03/17/2025 9:32 AM [facility] Albumin 3.7 3.2 - 5.0 g/dL LAB CHEMISTRY METHOD 03/17/2025 9:32 AM [facility] Total Bilirubin 0.8 0.0 - 1.4 mg/dL LAB CHEMISTRY METHOD 03/17/2025 9:32 AM [facility] Blood Venous blood specimen / Unknown Venipuncture / Unknown 03/17/2025 6:38 AM EDT 03/17/2025 7:48 AM EDT Marnie ORTIZ LAB BLOOD ORDERABLES Final Resul t [facility] [address] [place] [address], * SCREENING MAMMOGRAPHY BI 2-VIEW BREAST INC CAD (06/29/2024 12:18 PM EDT) Anatomical Region Laterality Modality Radiographic Nina ging 06/03/2023 3:01 PM EDT Narrative 07/01/2024 4:54 PM EDT This is a summary report. The complete report is available in the patient's medical record. If you cannot access the medical record, please contact the sending organization for a detailed fax or copy. BILATERAL 3D DIGITAL SCREENING MAMMOGRAM History: Routine screening. No current breast complaints. Comparison: Multiple priors dating back to 09/21/2020 Technique: Bilateral full-field digital 3D mammography was performed using standard CC and MLO projections CAD was used to evaluate this mammogram. Findings: Density: There are scattered areas of fibroglandular density-B RIGHT: No suspicious masses, groups of microcalcification or areas of architectural distortion identified. Stable typically benign parenchymal asymmetries LEFT: No suspicious masses, groups of microcalcifications or areas of architectural distortion identified. Stable typically benign parenchymal asymmetries IMPRESSION: : 1. No mammographic evidence of malignancy. BI-RADS Category 2 benign findings Recommendation: Routine annual screening mammography is recommended [address] [id number] Procedure Note Keith Saeed MD - 07/09/2024 This is a summary report. The complete report is available in thepatient's medical record. If you cannot access the medical record, pleasecontact the sending organization for a detailed fax or copy. BILATERAL 3D DIGITAL SCREENING MAMMOGRAM History: Routine screening. No current breast complaints. Comparison: Multiple priors dating back to 09/21/2020 Technique: Bilateral full-field digital 3D mammography was performed usingstandard CC and MLO projections CAD was used to evaluate this mammogram. Findings: Density: There are scattered areas of fibroglandular density-B RIGHT: No suspicious masses, groups of microcalcification or areas ofarchitectural distortion identified. Stable typically benign parenchymalasymmetries LEFT: No suspicious masses, groups of microcalcifications or areas ofarchitectural distortion identified. Stable typically benign parenchymalasymmetries IMPRESSION: : 1. No mammographic evidence of malignancy. BI-RADS Category 2 benign findings Recommendation: Routine annual screening mammography is recommended [facility] [address] [address] Alberto Seth MD IMG XR PROCEDURES Final Result * Depression Screening (11/02/2023) Depression Screening abstracted [facility] Provider HEALTH MAINTENANCE Final Result * Cervical Cancer Screening: HPV (04/21/2023) [facility] Cervical Cancer Screening: HPV negative, abstracted [facility] Provider HEALTH MAINTENANCE Final Result * (ABNORMAL) Lipid panel (01/04/2023) [facility] LDL/HDL Ratio 4 0 - 4 Triglycerides 114 0 - 150 mg/dL Cholesterol 215(A) 0 - 200 mg/dL HDL 58 >=40 mg/dL LDL Cholesterol 135(A) 0 - 100 mg/dL Blood Venous blood specimen / Unknown Result [facility] Provider LAB BLOOD ORDERABLES Caridad l Result * Colonoscopy (07/18/2018) [facility] Colonoscopy negative, abstracted Anatomical Region Laterality Modality Other Result [facility] Provider HEALTH MAINTENANCE Final Result * Hepatitis C Screening (02/01/2017) [facility] Hepatitis C Screening abstracted [facility] Provider HEALTH MAINTENANCE Final Result from Last 3 Months or Most Recently Relevant to Health Maintenance Insurance [address] [place] [id number] [facility] [employer] Care Teams [employer] 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
--- OUTSIDE RECORDS SUMMARY | 2025-06-12 16:42 | XMS_ITS | Encounter Summary ---
Author Organization [facility] Address [address] [place] [address] Care Team Providers Care Sales And Service Consultant Name Role Phone Alberto Seth MD Primary Care Provider [phone] Encounter Details Date Type Department Care Team (Late st Contact Info) Description 08/02/2022 Orders Only [facility] [address] [place] [id number] ProviderYesenia MD [address] [place] [id number] Social History Tobacco Use Types Packs/Day Years Used Date Smoking Tobacco: Never Assessed Comments Unknown Sex and Gender Information Value Date Recorded Sex Assigned at Not on file Legal Sex Female 12:54 PM EDT Gender Identity Not on file Sexual Orientation Not on file documented as of this encounter Plan of Treatment Not on file documented as of this encounter Procedures * Due to [place] law, this organization might not be sharing negative HIV tests. Procedure Name Priority Date/Time Associated Diagnosis Comments AMB EXTERNAL CT HEAD, OUTSID E RESULT Routine 05/31/2022 documented in this encounter Results * Due to [place] law, this organization might not be sharing negative HIV tests. * CT Head, Outside Result (05/31/2022) Anatomical Region Laterality Modality Other us Unknown Provider MD [facility] EXTERNAL RESULT PROCEDUR ES Final Result documented in this encounter Visit Diagnoses Not on filedocumented in this encounter Care Teams Sales And Service Consultant Relationship Specialty Start Date End Date Alberto Seth MD [address] [place] [address] PCP - General 08/17/22 documented as of this encounter
== END 2025-06-12 15:40 | disposition home or self-care (01) ==
LOC: HO.HSM 15:25
PROVIDERS: PCP Internal Medicine; Visit Provider Psychiatry & Neurology Neurology
DX: G43.019 Migraine without aura, intractable, without status migrainosus (principal); G43.119 Migraine with aura, intractable, without status migrainosus; G43.109 Migraine with aura, not intractable, without status migrainosus; F43.9 Reaction to severe stress, unspecified
CPT/HCPCS: 99214